=== PATIENT | female | born 1955 | race Caucasian/White ===

== ENCOUNTER → 2018-11-02 10:25 | Outpatient (CLI) | payer MEDICARE, OTHER, SELFPAY ==
[2018-11-02 10:53] LABS: Appearance Urine UA CLEAR; Bilirubin Urine UA NEGATIVE (NEGATIVE); Color Urine UA YELLOW; Glucose Urine UA NEGATIVE (Negative); Ketones Urine UA NEGATIVE (NEGATIVE); Leukocyte Esterase Urine UA NEGATIVE (NEGATIVE); Nitrite Urine UA NEGATIVE (Negative); Occult Blood Urine UA 3+ (Negative); Protein Urine UA NEGATIVE (Negative); Specific Gravity Urine UA 1.015 (1.000-1.035); Urobilinogen Urine UA 0.2 E.U./dL (0.2)
[2018-11-02 12:25] LABS: Add Manual Diff / Slide Review NO; Basophils Absolute Auto 0 /uL (0-100); Basophils Percent Auto 0.4 % (0-2); Eosinophils Absolute Auto 200 /uL (0-450); Eosinophils Percent Auto 2.2 % (2-4); Hemoglobin 14.2 g/dL (12.0-16.0); Lymphocytes Absolute Auto 3000 /uL (1100-4500); Lymphocytes Percent Auto 33.7 % (25-40); Mean Corpuscular HGB Conc 33.8 % (30-36); Mean Corpuscular Hemoglobin 29.7 PG (26-34); Mean Corpuscular Volume 87.9 fL (80-100); Monocytes Absolute Auto 600 /uL (0-900); Monocytes Percent Auto 6.9 % (3-14); Neutrophils Absolute Auto 5100 /uL (1500-7000); Neutrophils Percent Auto 56.8 % (50-75); Platelet Count 223 X10^3/uL (150-400); Red Blood Cell Count 4.78 X10^6/uL (4.0-5.2); Red Cell Distribution Width 14.4 % (11.6-14.8)
[2018-11-02 12:49] LABS: Alanine Aminotransferase 14 IU/L (9-52); Albumin 4.3 g/dL (3.5-5.0); Albumin Globulin Ratio 1.4 (1.0-2.8); Alkaline Phosphatase 90 U/L (38-126); Aspartate Aminotransferase 18 IU/L (14-36); BUN Creatinine Ratio 24.3 (6-22); Bilirubin Total 0.7 mg/dL (0.2-1.3); Blood Urea Nitrogen 17 mg/dL (7-17); Calcium 9.9 mg/dL (8.4-10.2); Carbon Dioxide 26 mmol/L (22-32); Chloride 104 mmol/L (98-107); Cholesterol 248 mg/dL (140-199); Estimated Glomerular Filt Rate > 60.0 mL/min (>60); Glucose 102 mg/dL (80-110); HDL Cholesterol 46 mg/dL (40-60); HEMOLYSIS < 15 (0-50); LDL Cholesterol Calculated 164 mg/dL (<100); Potassium 4.4 mmol/L (3.4-5.1); Sodium 141 mmol/L (137-145); Total Protein 7.3 g/dL (6.3-8.2); Triglycerides 188 mg/dL (35-150)
[2018-11-02 13:16] LABS: Thyroid Stimulating Hormone 2.15 uIU/mL (0.47-4.68)
== END ==
PROVIDERS: Visit Provider Family Medicine
DX: Z13.220 Encounter for screening for lipoid disorders (principal); Z13.29 Encounter for screening for other suspected endocrine disorder; Z51.81 Encounter for therapeutic drug level monitoring; I10 Essential (primary) hypertension
CPT/HCPCS: 36415; 80053; 80061; 81003; 84443; 85025

== ENCOUNTER → 2018-11-29 14:37 | Outpatient (CLI) | payer MEDICARE, OTHER, SELFPAY ==
[2018-11-29 14:46] LABS: Bacteria Urine None Seen
[2018-11-29 14:51] LABS: Appearance Urine UA SL CLOUDY; Bilirubin Urine UA NEGATIVE (NEGATIVE); Color Urine UA YELLOW; Glucose Urine UA NEGATIVE (Negative); Ketones Urine UA NEGATIVE (NEGATIVE); Leukocyte Esterase Urine UA NEGATIVE (NEGATIVE); Nitrite Urine UA NEGATIVE (Negative); Occult Blood Urine UA TRACE-LYSED (Negative); Protein Urine UA NEGATIVE (Negative); Specific Gravity Urine UA 1.025 (1.000-1.035); Urobilinogen Urine UA 0.2 E.U./dL (0.2)
[2018-11-29 14:53] LABS: pH Urine UA 5.5 (4.5-8.0)
[2018-11-29 14:58] LABS: Culture Indicated Urine Cult Not Indicated; RBC Urine 0-1/HPF (0-5/HPF); Squamous Epithelial Cell Urine 10-30 /HPF (0-5/HPF); WBC Urine 0-1/HPF (0-5/HPF)
== END ==
PROVIDERS: PCP Family Medicine; Visit Provider Family Medicine
DX: R31.9 Hematuria, unspecified (principal)
CPT/HCPCS: 81001

== ENCOUNTER → 2018-12-25 17:21 | Outpatient (CLI) | payer MEDICARE, OTHER, SELFPAY ==
--- NOTE | 2018-12-25 | DI.MG.S_ITS ---
BILATERAL DIGITAL SCREENING MAMMOGRAM 3D/2D WITH CAD: 12/25/2018 CLINICAL: Routine screening. Comparison is made to exams dated: 09/24/2012 mammogram, 11/06/2013 mammogram, and 01/04/2016 mammogram - [facility]. There are scattered fibroglandular elements in both breasts. Current study was also evaluated with a Computer Aided Detection (CAD) system. There is a mole marker on the right breast. There are mole markers on the left breast. No significant masses, calcifications, or other findings are seen in either breast. There has been no significant interval change. IMPRESSION: NEGATIVE There is no mammographic evidence of malignancy. A 1 year screening mammogram is recommended. This exam was interpreted at Station ID: [id number]. NOTE: For mammograms, a report in lay terms will be sent to the patient. Approximately 15% of breast malignancies will not be visualized mammographically. In the management of a palpable breast mass, a negative mammogram must not discourage biopsy of a clinically suspicious lesion. Electronically Signed By: Joaquin mclean/julio:12/26/2018 13:21:12 letter sent: Normal Exam ACR BI-RADS Category 1: Negative [id number]
== END ==
PROVIDERS: PCP Family Medicine; Visit Provider Family Medicine
DX: Z12.31 Encounter for screening mammogram for malignant neoplasm of breast (principal)
CPT/HCPCS: 77063; 77067

== ENCOUNTER → 2019-09-30 09:50 | Outpatient (CLI) | payer MEDICARE, OTHER, SELFPAY ==
--- NOTE | 2019-09-30 09:52 | DI.RAD.S_ITS ---
PROCEDURE: XR KUB INDICATIONS: kidney stone TECHNIQUE: One view of the abdomen acquired. COMPARISON: Outside Facility, RG, XR RETROGRADE PYELOGRAM, 08/25/2019, 13:43. FINDINGS: Surgical changes and devices: Right double-J ureteral stent. Bowel: Bowel gas pattern is normal. Soft tissues: There is a small calcification in the region of the distal right ureter measuring 6 mm which could represent a fragment of the previously seen obstructing calculus in the mid right ureter. Calcified fibroid uterus. No suspicious abdominal calcifications. Bones: No suspicious bony lesions. IMPRESSION: 1. Right double-J ureteral stent. 2. Probable fragment of the previously seen obstructing ureteral calculus at the distal right ureter. -Consider CT KUB for further evaluation. Dictated by: Ryne Spence M.D. on 09/30/2019 at 10:44 Approved by: Ryne Spence M.D. on 09/30/2019 at 10:48
== END ==
PROVIDERS: PCP Family Medicine; Referring Provider Specialist; Visit Provider Specialist
DX: N20.1 Calculus of ureter (principal); D25.9 Leiomyoma of uterus, unspecified; Z96.0 Presence of urogenital implants
CPT/HCPCS: 74018

== ENCOUNTER → 2019-10-01 16:41 | Outpatient (CLI) | payer MEDICARE, OTHER, SELFPAY ==
[2019-10-03 13:12] LABS: COVID19 Sendout Not Detected (Not Detect)
== END ==
PROVIDERS: PCP Family Medicine; Visit Provider Physician Assistant
DX: Z01.812 Encounter for preprocedural laboratory examination (principal)
CPT/HCPCS: 87635

== ENCOUNTER 2019-10-04 07:58 | Day surgery (SDC) | payer MEDICARE, OTHER, SELFPAY ==
[2019-10-02 10:55] VITALS: BMI 31.1
[2019-10-04] VITALS (11 sets, daily range): BP systolic 89–133; BP diastolic 63–85; PULSE 65–97; RESP 12–18; TEMP 36.1–36.7; O2SAT 94–98; BMI 31.1
--- NOTE | 2019-10-04 | DI.RAD.S_ITS ---
PROCEDURE: XR ABDOMEN 1V INDICATIONS: CYSTO W/ LASER AND STENT TECHNIQUE: One view of the abdomen acquired. COMPARISON: Outside Facility, RG, CT ABDOMEN/PELVIS WITHOUT CONTRAST, 08/24/2019, 10:30. Outside Facility, RG, XR RETROGRADE PYELOGRAM, 08/25/2019, 13:43. FINDINGS: Surgical changes and devices: None. Bowel: Bowel gas pattern is normal, partially visualized. Soft tissues: Single digital acquisition image from the operative procedure reportedly on the right with retrograde stent positioning, double pigtail presumably, with upper coil in the expected region of the right renal pelvis. Bones: No suspicious bony lesions. IMPRESSION: Single limited digital acquisition image shows expected positioning of a presumed double pigtail right ureteral stent with upper pigtail in expected position. Dictated by: Víctor Richardson M.D. on 10/04/2019 at 12:05 Approved by: Víctor Richardson M.D. on 10/04/2019 at 12:08
--- NOTE | 2019-10-04 09:07 | SUR.PREOP ---
Was asked to start an IV. Upon arrival at patient's bedside patient sitting up in the stretcher, rocking, pale, diaphoretic. C/O not feeling right. Cool wash cloth and ice pack given. BP 89/63, then 101/65. Spouse present. Patient reported feeling better. Call light within reach.
[2019-10-04] MEDS: LACTATED RINGERS 1,000 ML 42 ML IV ×2 (09:15→10:38)
--- NOTE | 2019-10-04 09:33 | PM.PREOP ---
Pre-operative Note Interval Note History & Physical reviewed/Exam performed by Physician: Yes Changes to H&P: No
[2019-10-04] MEDS: CEFAZOLIN 1 GM VIAL 2 GM IV (10:10)
--- NOTE | 2019-10-04 10:17 | SUR.OPER ---
Lithotomy on padded OR bed, head on pillow, arms secured on padded arm boards at <90 degrees abduction. Legs secured in padded yellow fins stirrups.
--- NOTE | 2019-10-04 10:42 | P.OP_ITS ---
Operative Date/Time/Diagnoses Date of procedure: 10/04/19 Time of procedure: 10:42 Pre-op diagnosis: Obstructing 6 x 8 mm right ureteral calculus Procedure & Clinicians Procedure: 1. Cystoscopy and right ureteroscopic laser lithotripsy. 2. Cystoscopy and right ureteral stent exchange (6 Dutch by 22-32 multi- length). Same procedure as scheduled: Yes Indications: 1. 6 x 8 mm obstructing right mid ureteral calculus Click Yes if Unassisted: Yes Anesthesia Type: General Operative Notes Findings: Urethra normal caliber. Bladder demonstrates trace trabeculation normal orifices bilaterally with a right ureteral stent emanating from the right orifice with mild surrounding erythema and bullous edema. The calculus was encountered in expected location. There was significant edema and erythema and mild mucosal excoriation in the region of the stone impaction. Intraoperative decision for stent replacement was made based on visual intraureteral findings. Closure Type: not applicable Specimen(s): none sent Applied: other (Six Dutch by 22-32 cm multi-length ureteral stent) Estimated Blood Loss (mL): 0 Blood products transfused: none Tourniquet time (min): 0 Procedure in detail: The patient was positioned supine and was administered general anesthesia. She was then repositioned semi lithotomy and the lower abdomen, genitalia, and perineum was prepped and draped in sterile fashion. The 22 Dutch panendoscope was then passed in the lower urinary tract with the findings as described above. A foreign body grasper was then used to engage the distal into the stent and bring it out to the perineum. A 0.35 guidewire was then advanced through the lumen of the existing stent and advanced proximally into the right upper collecting system under direct and fluoroscopic guidance. The existing stent was then backloaded off the wire and discarded. The wire was secured to the drape. The semi rigid ureteral scope was then prepared advanced and lower urinary tract into the into the right ureter under direct and fluoroscopic guidance. All ope rating room personnel and patient were then fitted with laser safety eyewear. A 272 micron laser fiber was selected. The fiber was advanced through the working channel of the ureteral scope and lithotripsy was then conducted with excellent subsequent stone fragmentation. Utilizing both hydrostatic and mechanical agitation the fragments and palm is were effectively irrigated clear of the ureteral lumen. The ureteral scope was then removed and the panendoscope was then backloaded onto the guidewire. A 6 Dutch by 22-32 cm multi-length stent was then selected. A RETRIEVAL LINE WAS LEFT ATTACHED. The bladder was then drained completely and all instrumentation was removed a final time. Retrieval line was trimmed to an appropriate length distal to the urethral meatus. The patient was then repositioned in supine, awakened[facility]. Complications: none Post-operative Condition: stable Disposition: PACU Plan for aftercare: Discharge home
[2019-10-04] MEDS: BELLADONNA/OPIUM SUPPOSITORIES 1 EACH PR (10:45)
[2019-10-04] MEDS: HYDROCODONE/ACET 5/325 TABLET 1 TAB PO (11:57)
== END 2019-10-04 12:50 | disposition home or self-care (01) ==
PROVIDERS: PCP Family Medicine; Referring Provider Specialist; Visit Provider Specialist
PROC: (CPT 52356; principal; 2019-10-04 09:15)
DX: N20.1 Calculus of ureter (principal); K21.9 Gastro-esophageal reflux disease without esophagitis
CPT/HCPCS: 52356; 74018; 76000; J0690; J1100; J2250; J2405; J2704; J2765; J3010

== ENCOUNTER 2019-10-20 19:27 | Inpatient (IN) | payer MEDICARE, OTHER, SELFPAY ==
[2019-10-20] VITALS (52 sets, daily range): BP systolic 117–160; BP diastolic 57–118; PULSE 75–107; RESP 11–42; TEMP 37.1; O2SAT 89–99
--- NOTE | 2019-10-20 19:34 | DI.CT.S_ITS ---
PROCEDURE: CT STROKE INDICATIONS: sudden dizzy, blurred vision, confusion 1 hour ago. TPA cand TECHNIQUE: Noncontrast 4.5 mm thick angled axial sections acquired from the foramen magnum to the vertex, with coronal reformats. For radiation dose reduction, the following was used: automated exposure control, adjustment of mA and/or kV according to patient size. COMPARISON: None. FINDINGS: Image quality: Excellent. CSF spaces: Basal cisterns are patent. No extra-axial fluid collections. Ventricles are normal in size and shape. Brain: No midline shift. No intracranial masses or hemorrhage. Dougherty-white matter interface is normal. Skull and face: Calvarium and visualized facial bones are intact, without suspicious lesions. Sinuses: Visualized sinuses and mastoids are clear. IMPRESSION: No intracranial hemorrhage or CT evidence of acute infarct. No acute intracranial process demonstrated otherwise. Findings were discussed with Dr. Armstrong at 8:07 p.m. PST on 10/20/2019. This study fulfills neurological imaging criteria for inclusion or exclusion of acute stroke therapies based on available published neurological imaging guidelines. Dictated by: Juan Lieberman M.D. on 10/20/2019 at 20:05 Approved by: Juan Lieberman M.D. on 10/20/2019 at 20:07
--- NOTE | 2019-10-20 20:01 | DI.CT.S_ITS ---
PROCEDURE: CT ANGIO HEAD AND NECK INDICATIONS: stroke TECHNIQUE: Pre-contrast 4.5 mm thick sections acquired from the foramen magnum to the vertex. After the administration of intravenous contrast, 1 mm thick sections acquired from the aortic arch through the [place] of [place]. Post-contrast 4.5 mm thick sections then re-acquired from the foramen magnum to the vertex. 3-dimensional racqirt-sutlujdgx-awajfsrbpg (MIP) and/or volume rendering reformats were acquired of the central intracranial vasculature and neck separately. COMPARISON: None. FINDINGS: Image quality: Excellent. BRAIN: HEAD CT ANGIOGRAPHY: Anterior circulation: In intracranial portions of the carotid arteries appear widely patent. Anterior and middle cerebral arteries demonstrate no focal occlusion or hemodynamically significant stenosis. Anterior cerebral artery is present. No evidence of anterior circulation intracranial aneurysm. Posterior circulation: The distal V4 segments are widely patent and both contribute to the basilar artery, right greater than left. Basilar artery is widely patent as are the posterior cerebral arteries. Right posterior communicating artery is not identified, hypoplastic versus aplastic. NECK CT ANGIOGRAPHY: Carotid system: Cervical carotid arteries demonstrate no flow-limiting stenosis or evidence of dissection. Posterior circulation: T cervical portions of the vertebral arteries demonstrate no flow-limiting stenosis or dissection IMPRESSION: No hemodynamically significant stenosis or occlusion of the major arterial circulation of the neck. No hemodynamically significant stenosis or branch occlusion of the intracranial arterial circulation. Any quantitative measurements of stenosis were performed using NASCET criteria. Dictated by: Juan Lieberman M.D. on 10/20/2019 at 20:10 Approved by: Juan Lieberman M.D. on 10/20/2019 at 20:14
[2019-10-20] MEDS: ONDANSETRON 4 MG/2 ML INJ (20:15)
[2019-10-20 20:19] LABS: Add Manual Diff / Slide Review NO; Basophils Absolute Auto 100 /uL (0-100); Eosinophils Absolute Auto 100 /uL (0-450); Eosinophils Percent Auto 1.1 % (2-4); Hematocrit 42.6 % (36-46); Hemoglobin 14.2 g/dL (12.0-16.0); Lymphocytes Absolute Auto 2400 /uL (1100-4500); Lymphocytes Percent Auto 30.2 % (25-40); Mean Corpuscular HGB Conc 33.4 % (30-36); Mean Corpuscular Hemoglobin 29.5 PG (26-34); Mean Corpuscular Volume 88.2 fL (80-100); Monocytes Absolute Auto 500 /uL (0-900); Monocytes Percent Auto 6.2 % (3-14); Neutrophils Absolute Auto 5000 /uL (1500-7000); Neutrophils Percent Auto 61.5 % (50-75); Platelet Count 226 X10^3/uL (150-400); Red Blood Cell Count 4.83 X10^6/uL (4.0-5.2); Red Cell Distribution Width 13.9 % (11.6-14.8); White Blood Cell Count 8.1 X10^3/uL (4.5-11.0)
--- NOTE | 2019-10-20 20:19 | PC.NURSE ---
Patient arrived via [facility]. patient reports not feeling well the whole day. states she did not eat anything all day due to feeling off. Reports her memory is not good. not oriented to place. after two reminders of telling patient where she is she now remembers she is at [facility].
[2019-10-20 20:20] LABS: Bilirubin Urine UA NEGATIVE (NEGATIVE); Color Urine UA YELLOW; Glucose Urine UA NEGATIVE (Negative); Ketones Urine UA NEGATIVE (NEGATIVE); Leukocyte Esterase Urine UA 3+ (NEGATIVE); Nitrite Urine UA NEGATIVE (Negative); Occult Blood Urine UA 3+ (Negative); Protein Urine UA TRACE (Negative); Specific Gravity Urine UA <=1.005 (1.000-1.035); Urobilinogen Urine UA 0.2 E.U./dL (0.2)
--- NOTE | 2019-10-20 20:21 | PC.NURSE ---
patient reports [facility] Patient needed to urinate with urgency and was able to hold urine intil placed on bedpan. Urine dipped by MADAN
[2019-10-20 20:30] LABS: Appearance Urine UA CLOUDY; pH Urine UA 6.5 (4.5-8.0)
[2019-10-20 20:30] LABS: Lactate (Lactic Acid) 2.2 mmol/L (0.7-2.1)
[2019-10-20 20:31] LABS: Alanine Aminotransferase 16 IU/L (<35); Albumin 4.1 g/dL (3.5-5.0); Albumin Globulin Ratio 1.3 (1.0-2.8); Alkaline Phosphatase 65 U/L (38-126); Aspartate Aminotransferase 24 IU/L (14-36); BUN Creatinine Ratio 19.2 (6-22); Bilirubin Total 0.6 mg/dL (0.2-1.3); Blood Urea Nitrogen 14 mg/dL (7-17); Calcium 9.5 mg/dL (8.4-10.2); Carbon Dioxide 25 mmol/L (22-32); Chloride 103 mmol/L (98-107); Creatine Kinase 32 U/L (30-135); Estimated Glomerular Filt Rate > 60.0 mL/min (>60); Globulin 3.1 g/dL (1.7-4.1); Glucose 137 mg/dL (80-110); HEMOLYSIS 19 (0-50); Magnesium 1.8 mg/dL (1.6-2.3); Potassium 3.8 mmol/L (3.4-5.1); Sodium 136 mmol/L (137-145); Total Protein 7.2 g/dL (6.3-8.2)
[2019-10-20 20:32] LABS: C-Reactive Protein Quant < 0.5 mg/dL (<1.0)
[2019-10-20 20:38] LABS: Bacteria Urine Many (>30); Calcium Oxalate Crystals Urine Occasional; Culture Indicated Urine Specimen Cultured; RBC Urine 1-5/HPF (0-5/HPF); Squamous Epithelial Cell Urine 1-5 /HPF (0-5/HPF); WBC Urine 30-100/HPF (0-5/HPF)
[2019-10-20 20:41] LABS: NT-proBNP (BNP-Adult 18+) 100 pg/mL (<125); Troponin I < 0.012 ng/mL (0.01-0.034)
[2019-10-20] MEDS: SODIUM CHLORIDE 0.9% 1,000 ML 1000 ML IV (20:41)
--- NOTE | 2019-10-20 20:56 | ED.AMS ---
HPI - Altered Mental Status General Chief Complaint: Altered Mental Status Stated Complaint: dizzy Time Seen by Provider: 10/20/19 19:28 Source: EMS Mode of arrival: EMS Limitations: no limitations History of Present Illness HPI narrative: 64F never smoker with history of kidney stone and recent ureteral stent placement presents with a chief complaint some dizziness, confusion and feeling generally unwell over the course of the day. She denies any focal neurologic complaints such as facial weakness or extremity numbness, weakness or tingling. She denies any recent injury. She has had subjective fever and chills. She states her urine is passing without difficulty but does smell a bit. She has generalized abdominal cramping but no specific source of pain. Initially patient's complaint of vision difficulty was reported as having started 1 hour prior to her arrival, hence her activation as a code stroke initially. However after further questioning, when her arrived it was determined this was a much more global presentation and had been going on over the course of the day. MD complaint: altered mental status and confusion Onset (ago): day(s) Timing confirmed by: family member Severity: mild Consistency of symptoms: constant Context: recent fever Associated symptoms: weakness and foul smelling urine Related Data Previous Rx's Medication Instructions Recorded cyclobenzaprine 10 mg tablet 10 mg PO BEDTIME PRN #5 tab 09/03/18 lorazepam 1 mg tablet 1 mg PO QD-BID PRN #60 tab 09/03/18 meclizine 25 mg tablet 25 mg PO BID PRN #100 tab 09/03/18 omeprazole 20 mg capsule,delayed 20 mg PO DAILY #90 cap 09/03/18 release tamsulosin 0.4 mg capsule 0.4 mg PO BEDTIME #30 cap 09/25/19 tramadol 50 mg tablet 50 mg PO Q6H PRN #30 tab 09/25/19 tramadol 50 mg PO Q6H PRN #20 tab 10/04/19 Allergies Allergy/AdvReac Type Severity Reaction Status Date / Time hydromorphone [From Dilaudid] Allergy Intermediate Unsure Verified 10/20/19 19:40 clindamycin Allergy Verified 10/20/19 19:40 verapamil Allergy Verified 10/20/19 19:40 meperidine [From Demerol] AdvReac Intermediate vomiting Verified 10/20/19 19:40 Review of Systems Constitutional Constitutional: Reports body ache(s), Reports chills, Reports fatigue, Reports fever(s), Denies frequent falls, Denies lethargy, Reports poor appetite and Reports weakness Eyes Eyes: Denies change in vision, Denies eye discharge, Denies irritation and Denies loss of vision ENT Ears, Nose, Mouth, and Throat: Denies change in voice, Denies dizziness, Denies neck pain, Denies sore throat and Denies throat swelling Cardiovascular Cardiovascular: Denies chest pain, Denies irregular heart rhythm, Denies lightheadedness, Denies palpitations, Denies dyspnea, Denies dyspnea on exertion and Denies orthopnea Respiratory Respiratory: Denies cough, Denies dyspnea, Denies dyspnea on exertion and Denies wheezing Gastrointestinal Gastrointestinal: Denies abdominal pain, Denies change in bowel habits, Denies diarrhea, Denies nausea and Denies vomiting Genitourinary Genitourinary: Reports system reviewed and no additional complaints, except as documented Musculoskeletal Musculoskeletal: Denies neck pain and Denies numbness Integumentary/Breasts Skin/Breast: Denies pruritus, Denies erythema, Denies rash and Denies wounds Neurologic Neurologic: Denies behavioral changes, Reports confusion, Denies dizziness, Denies frequent falls, Denies loss of vision, Denies numbness and Reports weakness Psychiatric Psychiatric: Denies anxiety, Denies behavioral changes, Reports confusion, Denies depression, Denies homicidal ideation and Denies suicidal ideation Endocrine Endocrine: Reports fatigue, Denies flushing and Denies palpitations Hematologic/Lymphatic Hematologic/Lymphatic: Denies easy bruising Allergic/Immunologic Allergic/Immunologic: Denies urticaria, Denies throat swelling and Denies wheezing Patient History Medical History Chicken pox (Resolved) GERD (gastroesophageal reflux disease) (Acute) Hydronephrosis of right kidney (Acute) Hyperglycemia (Acute) Irritable bowel syndrome (Chronic ~2016) LVH (left ventricular hypertrophy) (Acute) Migraines (Chronic) Moderate anxiety (Acute) Recurrent sinusitis (Chronic ~1999) Right ureteral stone (Acute) Seasonal allergies (Chronic ~2010) Stroke (Inactive ~2009) Tinnitus (Chronic ~1994) Tonsillectomy planned (Acute) Urolithiasis (Acute) Vertigo (Chronic ~1994) Surgical History Anesthesia (Resolved) History of throat surgery (Resolved ~2011) Hx of cystoscopy (Acute 08/25/19) Family History Father Cancer Diabetes mellitus Mother Dementia Grandmother History of blood clots Grandmother Cancer Social History household members: spouse Smoking Status: Never smoker alcohol intake: current Smoking Status: Never smoker alcohol intake frequency: holidays/special occasions only Substance Use Type: does not use Exam Narrative Exam Narrative: GENERAL: [64] year old patient appears stated age. Well-nourished, well-developed patient, in moderate distress, clearly not feeling well with some confusion. HEAD: Atraumatic. Normocephalic. EYES: Pupils equal round and reactive. Extraocular motions intact. No scleral icterus. No injection or drainage. ENT: Nose without bleeding, purulent drainage. Throat without erythema, tonsillar hypertrophy or exudate. Airway patent. NECK: Trachea midline. Non tender CARDIOVASCULAR: Regular rate and rhythm without murmurs, gallops, or rubs. RESPIRATORY: Clear to auscultation. Breath sounds equal bilaterally. No wheezes, rales, or rhonchi. GASTROINTESTINAL: Abdomen soft, non-tender, nondistended. EXTREMITIES: No edema or joint tenderness. BACK: Nontender without deformity or crepitance. No flank tenderness. NEURO: AOx3. SKIN: No rash or erythema of visible areas Initial Vital Signs Initial Vital Signs: Vital Signs Temperature 98.8 F 10/20/19 19:32 Pulse Rate 96 H 10/20/19 19:32 Respiratory Rate 20 10/20/19 19:32 Blood Pressure 160/118 H 10/20/19 19:32 Pulse Oximetry 99 10/20/19 19:32 Scores GCS Maria [place] Carmen coma scale eye opening: Spontaneous Maria [place] Carmen coma scale verbal response: Confused Aurora coma scale motor response: Obey commands Maria Del Carmen coma scale total score: 14 Course Course Course Narrative: Her urologist Dr. Bardales, is not on-call this weekend so a call is placed to Dr. Houston at the [facility]. We discussed this patient's presentation, recent history and imaging. There is no evidence of ongoing stone or obstruction and patient's presentation is most consistent with pyelonephritis and metabolic encephalopathy. He states there is no indication for transfer or need for emergent removal of the stent. His recommendation is to admit and treat for pyelonephritis and consultation with the patient's urologist tomorrow Orders Ordered: Cyclobenzaprine HCl (Flexeril) 10 mg PO BEDTIME PRN PRN Reason: muscle spasm Sodium Chloride (Normal Saline 0.9%) 1,000 mls @ 100 mls/hr IV CONT GIOVANNY Last Admin: 10/21/19 01:23 Dose: 100 mls/hr Documented by: GREYSON Ceftriaxone Sodium/Dextrose (Rocephin) 1 gm in 50 mls @ 100 mls/hr IV Q24H GIOVANNY Ketorolac Tromethamine (Toradol) 15 mg IV Q8H PRN PRN Reason: Pain, Moderate (4-6) Stop: 10/26/19 00:30 Lorazepam (Ativan) 1 mg PO BID PRN PRN Reason: Anxiety Meclizine HCl (Antivert) 25 mg PO BID PRN PRN Reason: dizziness Naloxone HCl (Narcan) 0.2 mg IV Q2MIN PRN PRN Reason: Opiate Reversal Tamsulosin HCl (Flomax) 0.4 mg PO BEDTIME GIOVANNY Tramadol HCl (Ultram) 50 mg PO Q6H PRN PRN Reason: pain Discontinued Medications Acetaminophen (Tylenol) 650 mg PO NOW ONE Stop: 10/21/19 00:10 Last Admin: 10/21/19 00:13 Dose: 650 mg Documented by: LOLITA Sodium Chloride (Normal Saline 0.9%) 1,000 mls @ 1,000 mls/hr IV BOLUS ONE Stop: 10/20/19 20:33 Last Infusion: 10/20/19 22:34 Dose: 0 mls/hr Documented by: Admin: 10/20/19 20:41 Dose: 1,000 mls/hr Documented by: LOLITA Ceftriaxone Sodium/Dextrose (Rocephin) 1 gm in 50 mls @ 100 mls/hr IV NOW ONE Stop: 10/20/19 21:21 Last Infusion: 10/20/19 21:48 Dose: 0 mls/hr Documented by: Admin: 10/20/19 21:15 Dose: 100 mls/hr Documented by: LOLITA Ceftriaxone Sodium/Dextrose (Rocephin) 1 gm in 50 mls @ 100 mls/hr IV Q24H GIOVANNY Vital Signs Vital signs: Vital Signs - 8 hr 10/20/19 22:20 10/20/19 22:25 10/20/19 22:30 Pulse Rate 84 79 85 Respiratory Rate 17 Blood Pressure Pulse Oximetry 98 97 96 10/20/19 22:35 10/20/19 22:40 10/20/19 22:45 Pulse Rate 105 H 89 84 Respiratory Rate 30 H 19 15 Blood Pressure Pulse Oximetry 95 96 96 10/20/19 22:50 10/20/19 22:56 10/20/19 23:00 Pulse Rate 89 89 86 Respiratory Rate 15 13 17 Blood Pressure Pulse Oximetry 96 96 92 10/20/19 23:05 10/20/19 23:07 10/20/19 23:10 Pulse Rate 87 87 83 Respiratory Rate 22 24 Blood Pressure 117/57 L Pulse Oximetry 96 96 97 10/20/19 23:15 10/20/19 23:20 10/20/19 23:25 Pulse Rate 75 75 79 Respiratory Rate 12 16 Blood Pressure 125/61 Pulse Oximetry 96 97 96 10/20/19 23:30 10/20/19 23:35 10/20/19 23:40 Pulse Rate 81 79 87 Respiratory Rate 21 12 19 Blood Pressure 126/60 Pulse Oximetry 96 95 98 10/20/19 23:45 10/20/19 23:50 Pulse Rate 80 79 Respiratory Rate 14 17 Blood Pressure 130/63 Pulse Oximetry 95 95 MDM - Altered Mental Status Lab Data Result diagrams: 10/20/19 20:10 10/20/19 20:10 Labs: Lab Results 10/20/19 10/20/19 10/20/19 Range/Units 20:10 20:10 20:10 WBC 8.1 (4.5-11.0) X10^3/uL RBC 4.83 (4.0-5.2) X10^6/uL Hgb 14.2 (12.0-16.0) g/dL Hct 42.6 (36-46) % MCV 88.2 (80-100) fL MCH 29.5 (26-34) PG MCHC 33.4 (30-36) % RDW 13.9 (11.6-14.8) % Plt Count 226 (150-400) X10^3/uL Neut % (Auto) 61.5 (50-75) % Lymph % (Auto) 30.2 (25-40) % Summit % (Auto) 6.2 (3-14) % Eos % (Auto) 1.1 L (2-4) % Baso % (Auto) 1.0 (0-2) % Neut # (Auto) 5000 (7699-4490) /uL Lymph # (Auto) 2400 (4031-2957) /uL Summit # (Auto) 500 (0-900) /uL Eos # (Auto) 100 (0-450) /uL Baso # (Auto) 100 (0-100) /uL Sodium 136 L (137-145) mmol/L Potassium 3.8 (3.4-5.1) mmol/L Chloride 103 (98-107) mmol/L Carbon Dioxide 25 (22-32) mmol/L BUN 14 (7-17) mg/dL Creatinine 0.73 (0.52-1.04) mg/dL Estimated GFR > 60.0 (>60) mL/min BUN/Creatinine Ratio 19.2 (6-22) Glucose 137 H (80-110) mg/dL Lactate 2.2 H (0.7-2.1) mmol/L Calcium 9.5 (8.4-10.2) mg/dL Magnesium 1.8 (1.6-2.3) mg/dL Total Bilirubin 0.6 (0.2-1.3) mg/dL AST 24 (14-36) IU/L ALT 16 (<35) IU/L Alkaline Phosphatase 65 (38-126) U/L Total Creatine Kinase 32 (30-135) U/L CK-MB (CK-2) TNP CK-MB (CK-2) Rel Index TNP Troponin I < 0.012 (0.01-0.034) ng/mL C-Reactive Protein < 0.5 (<1.0) mg/dL NT-Pro-B Natriuret Pep 100 (<125) pg/mL Total Protein 7.2 (6.3-8.2) g/dL Albumin 4.1 (3.5-5.0) g/dL Globulin 3.1 (1.7-4.1) g/dL Albumin/Globulin Ratio 1.3 (1.0-2.8) Procalcitonin (<0.5) ng/mL Urine Color Urine Appearance Urine pH (4.5-8.0) Ur Specific [place] (1.000-1.035) Urine Protein (Negative) Urine Glucose (UA) (Negative) g/dL Urine Ketones (NEGATIVE) Urine Occult Blood (Negative) Urine Nitrate (Negative) Urine Bilirubin (NEGATIVE) Urine Urobilinogen (0.2) E.U./dL Ur Leukocyte Esterase (NEGATIVE) Urine RBC (0-5/HPF) Urine WBC (0-5/HPF) Ur Squamous Epith Cells (0-5/HPF) Calcium Oxalate Crystal Urine Bacteria (None) Ur Culture Indicated? COVID-19 PCR (Negative) 10/20/19 10/20/19 10/20/19 Range/Units 20:18 20:48 22:30 WBC (4.5-11.0) X10^3/uL RBC (4.0-5.2) X10^6/uL Hgb (12.0-16.0) g/dL Hct (36-46) % MCV (80-100) fL MCH (26-34) PG MCHC (30-36) % RDW (11.6-14.8) % Plt Count (150-400) X10^3/uL Neut % (Auto) (50-75) % Lymph % (Auto) (25-40) % Summit % (Auto) (3-14) % Eos % (Auto) (2-4) % Baso % (Auto) (0-2) % Neut # (Auto) (9563-9528) /uL Lymph # (Auto) (6856-6265) /uL Summit # (Auto) (0-900) /uL Eos # (Auto) (0-450) /uL Baso # (Auto) (0-100) /uL Sodium (137-145) mmol/L Potassium (3.4-5.1) mmol/L Chloride (98-107) mmol/L Carbon Dioxide (22-32) mmol/L BUN (7-17) mg/dL Creatinine (0.52-1.04) mg/dL Estimated GFR (>60) mL/min BUN/Creatinine Ratio (6-22) Glucose (80-110) mg/dL Lactate 1.3 (0.7-2.1) mmol/L Calcium (8.4-10.2) mg/dL Magnesium (1.6-2.3) mg/dL Total Bilirubin (0.2-1.3) mg/dL AST (14-36) IU/L ALT (<35) IU/L Alkaline Phosphatase (38-126) U/L Total Creatine Kinase (30-135) U/L CK-MB (CK-2) CK-MB (CK-2) Rel Index Troponin I (0.01-0.034) ng/mL C-Reactive Protein (<1.0) mg/dL NT-Pro-B Natriuret Pep (<125) pg/mL Total Protein (6.3-8.2) g/dL Albumin (3.5-5.0) g/dL Globulin (1.7-4.1) g/dL Albumin/Globulin Ratio (1.0-2.8) Procalcitonin < 0.05 (<0.5) ng/mL Urine Color Yellow Urine Appearance Cloudy Urine pH 6.5 (4.5-8.0) Ur Specific [place] <=1.005 (1.000-1.035) Urine Protein Trace H (Negative) Urine Glucose (UA) Negative (Negative) g/dL Urine Ketones Negative (NEGATIVE) Urine Occult Blood 3+ H (Negative) Urine Nitrate Negative (Negative) Urine Bilirubin Negative (NEGATIVE) Urine Urobilinogen 0.2 (0.2) E.U./dL Ur Leukocyte Esterase 3+ H (NEGATIVE) Urine RBC 1-5/hpf (0-5/HPF) Urine WBC 30-100/hpf H (0-5/HPF) Ur Squamous Epith Cells 1-5 /hpf D (0-5/HPF) Calcium Oxalate Crystal Occasional H Urine Bacteria Many (>30) H (None) Ur Culture Indicated? Specimen cultured COVID-19 PCR (Negative) 10/20/19 Range/Units 23:37 WBC (4.5-11.0) X10^3/uL RBC (4.0-5.2) X10^6/uL Hgb (12.0-16.0) g/dL Hct (36-46) % MCV (80-100) fL MCH (26-34) PG MCHC (30-36) % RDW (11.6-14.8) % Plt Count (150-400) X10^3/uL Neut % (Auto) (50-75) % Lymph % (Auto) (25-40) % Summit % (Auto) (3-14) % Eos % (Auto) (2-4) % Baso % (Auto) (0-2) % Neut # (Auto) (4592-6377) /uL Lymph # (Auto) (5559-7987) /uL Summit # (Auto) (0-900) /uL Eos # (Auto) (0-450) /uL Baso # (Auto) (0-100) /uL Sodium (137-145) mmol/L Potassium (3.4-5.1) mmol/L Chloride (98-107) mmol/L Carbon Dioxide (22-32) mmol/L BUN (7-17) mg/dL Creatinine (0.52-1.04) mg/dL Estimated GFR (>60) mL/min BUN/Creatinine Ratio (6-22) Glucose (80-110) mg/dL Lactate (0.7-2.1) mmol/L Calcium (8.4-10.2) mg/dL Magnesium (1.6-2.3) mg/dL Total Bilirubin (0.2-1.3) mg/dL AST (14-36) IU/L ALT (<35) IU/L Alkaline Phosphatase (38-126) U/L Total Creatine Kinase (30-135) U/L CK-MB (CK-2) CK-MB (CK-2) Rel Index Troponin I (0.01-0.034) ng/mL C-Reactive Protein (<1.0) mg/dL NT-Pro-B Natriuret Pep (<125) pg/mL Total Protein (6.3-8.2) g/dL Albumin (3.5-5.0) g/dL Globulin (1.7-4.1) g/dL Albumin/Globulin Ratio (1.0-2.8) Procalcitonin (<0.5) ng/mL Urine Color Urine Appearance Urine pH (4.5-8.0) Ur Specific [place] (1.000-1.035) Urine Protein (Negative) Urine Glucose (UA) (Negative) g/dL Urine Ketones (NEGATIVE) Urine Occult Blood (Negative) Urine Nitrate (Negative) Urine Bilirubin (NEGATIVE) Urine Urobilinogen (0.2) E.U./dL Ur Leukocyte Esterase (NEGATIVE) Urine RBC (0-5/HPF) Urine WBC (0-5/HPF) Ur Squamous Epith Cells (0-5/HPF) Calcium Oxalate Crystal Urine Bacteria (None) Ur Culture Indicated? COVID-19 PCR Negative (Negative) Urine Dip Bedside Urine Glucose Negative Bedside Urine Bilirubin - Negative Bedside Urine Ketone - Negative Urine Specific [place]ke 1.005 Bedside Urine Occult Blood +++ Bedside Urine pH 6.0 Bedside Urine Protein + 30 Bedside Urine Urobilinogen - Negative Bedside Urine Nitrite - Negative Bedside Urine Leukocytes +++ [address] scan - head: Radiologist's Impression: Chart Viewer Diagnostics DATE TYPE STATUS REF RANGE/AUTHOR Hx 10/20/19 21:13 Juan Lieberman 10/20/19 20:01 Juan Lieberman 10/20/19 19:34 Juan Lieberman 10/04/19 00:00 Víctor Richardson 09/30/19 09:52 Ryne Spence 08/24/19 11:53 12/25/18 00:00 Joaquin Grant [employer] Portillo 64, 1955 ADM IN, AC 207 -1 165.1cm 87.543kg BMI: 32.1kg/m? Search Chart No Data to Display Unsure vomiting ONSET Today 00:25 Art Crowesury Portillo 64 F 1955 [place] [address] CT Scan Report Signed Patient: Joelen Crowe LMR#: [id number] : 1955cct:[id number] Age/Sex: 64 / FDate of Service: 10/20/19 Loc: ED Accession Number: [id number] Procedure: CT Stroke Ordering Provider: Chinedu Armstrong D.O. PROCEDURE: CT STROKE INDICATIONS: sudden dizzy, blurred vision, confusion 1 hour ago. TPA cand TECHNIQUE: Noncontrast 4.5 mm thick angled axial sections acquired from the foramen magnum to the vertex, with coronal reformats. For radiation dose reduction, the following was used: automated exposure control, adjustment of mA and/or kV according to patient size. COMPARISON: None. FINDINGS: Image quality: Excellent. CSF spaces: Basal cisterns are patent. No extra-axial fluid collections. Ventricles are normal in size and shape. Brain: No midline shift. No intracranial masses or hemorrhage. Dougherty-white matter interface is normal. Skull and face: Calvarium and visualized facial bones are intact, without suspicious lesions. Sinuses: Visualized sinuses and mastoids are clear. IMPRESSION: No intracranial hemorrhage or CT evidence of acute infarct. No acute intracranial process demonstrated otherwise. Findings were discussed with Dr. Armstrong at 8:07 p.m. PST on 10/20/2019. This study fulfills neurological imaging criteria for inclusion or exclusion of acute stroke therapies based on available published neurological imaging guidelines. Dictated by: Juan Lieberman M.D. on 10/20/2019 at 20:05 Approved by: Juan Lieberman M.D. on 10/20/2019 at 20:07 CTA Head Neck: Radiologist's Impression: [place] [address] CT Scan Report Signed Patient: Joleen Crowe LMR#: [id number] : 3Acct:[id number] Age/Sex: 64 / FDate of Service: 10/20/19 Loc: ED Accession Number: [id number] Procedure: CT angio head and neck Ordering Provider: Chinedu Armstrong D.O. PROCEDURE: CT ANGIO HEAD AND NECK INDICATIONS: stroke TECHNIQUE: Pre-contrast 4.5 mm thick sections acquired from the foramen magnum to the vertex. After the administration of intravenous contrast, 1 mm thick sections acquired from the aortic arch through the [place] of [place]. Post-contrast 4.5 mm thick sections then re-acquired from the foramen magnum to the vertex. 3-dimensional gapxgae-tvsaptooe-xayuxzfjfh (MIP) and/or volume rendering reformats were acquired of the central intracranial vasculature and neck separately. COMPARISON: None. FINDINGS: Image quality: Excellent. BRAIN: HEAD CT ANGIOGRAPHY: Anterior circulation: In intracranial portions of the carotid arteries appear widely patent. Anterior and middle cerebral arteries demonstrate no focal occlusion or hemodynamically significant stenosis. Anterior cerebral artery is present. No evidence of anterior circulation intracranial aneurysm. Posterior circulation: The distal V4 segments are widely patent and both contribute to the basilar artery, right greater than left. Basilar artery is widely patent as are the posterior cerebral arteries. Right posterior communicating artery is not identified, hypoplastic versus aplastic. NECK CT ANGIOGRAPHY: Carotid system: Cervical carotid arteries demonstrate no flow-limiting stenosis or evidence of dissection. Posterior circulation: T cervical portions of the vertebral arteries demonstrate no flow-limiting stenosis or dissection IMPRESSION: No hemodynamically significant stenosis or occlusion of the major arterial circulation of the neck. No hemodynamically significant stenosis or branch occlusion of the intracranial arterial circulation. Any quantitative measurements of stenosis were performed using NASCET criteria. Dictated by: Juan Lieberman M.D. on 10/20/2019 at 20:10 Approved by: Juan Lieberman M.D. on 10/20/2019 at 20:14 CT scan - abdomen/pelvis: Radiologist's Impression: Chart Viewer Diagnostics DATE TYPE STATUS REF RANGE/AUTHOR Hx 10/20/19 21:13 Juan Lieberman 10/20/19 20:01 Juan Lieberman 10/20/19 19:34 Juan Lieberman 10/04/19 00:00 Víctor Richardson 09/30/19 09:52 Ryne Spence 08/24/19 11:53 12/25/18 00:00 Joaquin Grant [employer] [place]illo 64, 1955 ADM IN, AC 207 -1 165.1cm 87.543kg BMI: 32.1kg/m? Search Chart No Data to Display Unsure vomiting ONSET Today 00:25 Joleen Crowe Bandar 64 F 1955 [place] [address] CT Scan Report Signed Patient: Joleen Crowe LMR#: [id number] : 1955cct:[id number] Age/Sex: 64 / FDate of Service: 10/20/19 Loc: ED Accession Number: [id number] Procedure: CT kidney ureter bladder (KUB) Ordering Provider: Chinedu Armstrong D.O. PROCEDURE: CT KIDNEY URETER BLADDER (KUB) INDICATIONS: Urosepsis, confusion, recent large stone and ureteral stent TECHNIQUE: Noncontrast 5 mm thick sections acquired from the diaphragms to the symphysis. 5 mm thick coronal and sagittal reformats were then performed. For radiation dose reduction, the following was used: automated exposure control, adjustment of mA and/or kV according to patient size. COMPARISON: Outside Facility, RG, XR RETROGRADE PYELOGRAM, 08/25/2019, 13:43. [facility], CR, XR KUB, 09/30/2019, 9:43. FINDINGS: Image quality: Excellent. Lung bases: Lung bases are clear. Heart size is normal. Urinary system: Excreted contrast material from the patient's recent CT head neck angiogram is present in both collecting systems. There is a right double-J ureteral stent in appropriate position. Mildly dilated right renal pelvis similar to comparison study. The ureter is decompressed with periureteric fat stranding. Left renal and ureteral collecting system is decompressed. Urinary bladder is within normal limits. Other solid organs: Liver is normal in size. Gallbladder appears2 normal. Pancreas is normal in contours. Spleen is normal in size. No adrenal nodules. Peritoneum and bowel: Unenhanced bowel loops demonstrate normal wall thickness and caliber. No free fluid or air. Nodes and vessels: No retroperitoneal or mesenteric adenopathy by size criteria. Aorta and inferior vena cava are normal in caliber. Abdominal wall: No ventral hernias. Pelvis: No free pelvic fluid. No inguinal hernias or adenopathy. Bones: No suspicious bony lesions. No vertebral body compression fractures. IMPRESSION: Right double-J ureteral stent. Mild dilatation of the right renal collecting system and right renal pelvis with adjacent fat stranding extending along the proximal 3rd of the right ureter. Findings may represent upper urinary tract infection. Dictated by: Juan Lieberman M.D. on 10/20/2019 at 21:44 Approved by: Juan Lieberman M.D. on 10/20/2019 at 21:54 Discharge Plan Departure Patient Disposition: Admitted As Inpatient Clinical Impression: Acute pyelonephritis, Acute metabolic encephalopathy Discharge Date/Time: 10/21/19 00:19 Admit Date/Time: 10/20/19 23:54 Admit Provider: Destiny Rosas
--- NOTE | 2019-10-20 21:11 | PC.NURSE ---
kaiers x 2 drawn by sowmya mcdonald
--- NOTE | 2019-10-20 21:13 | DI.CT.S_ITS ---
PROCEDURE: CT KIDNEY URETER BLADDER (KUB) INDICATIONS: Urosepsis, confusion, recent large stone and ureteral stent TECHNIQUE: Noncontrast 5 mm thick sections acquired from the diaphragms to the symphysis. 5 mm thick coronal and sagittal reformats were then performed. For radiation dose reduction, the following was used: automated exposure control, adjustment of mA and/or kV according to patient size. COMPARISON: Outside Facility, RG, XR RETROGRADE PYELOGRAM, 08/25/2019, 13:43. [facility], CR, XR KUB, 09/30/2019, 9:43. FINDINGS: Image quality: Excellent. Lung bases: Lung bases are clear. Heart size is normal. Urinary system: Excreted contrast material from the patient's recent CT head neck angiogram is present in both collecting systems. There is a right double-J ureteral stent in appropriate position. Mildly dilated right renal pelvis similar to comparison study. The ureter is decompressed with periureteric fat stranding. Left renal and ureteral collecting system is decompressed. Urinary bladder is within normal limits. Other solid organs: Liver is normal in size. Gallbladder appears2 normal. Pancreas is normal in contours. Spleen is normal in size. No adrenal nodules. Peritoneum and bowel: Unenhanced bowel loops demonstrate normal wall thickness and caliber. No free fluid or air. Nodes and vessels: No retroperitoneal or mesenteric adenopathy by size criteria. Aorta and inferior vena cava are normal in caliber. Abdominal wall: No ventral hernias. Pelvis: No free pelvic fluid. No inguinal hernias or adenopathy. Bones: No suspicious bony lesions. No vertebral body compression fractures. IMPRESSION: Right double-J ureteral stent. Mild dilatation of the right renal collecting system and right renal pelvis with adjacent fat stranding extending along the proximal 3rd of the right ureter. Findings may represent upper urinary tract infection. Dictated by: Juan Lieberman M.D. on 10/20/2019 at 21:44 Approved by: Juan Lieberman M.D. on 10/20/2019 at 21:54
[2019-10-20] MEDS: CEFTRIAXONE 1 GM/50 ML FROZ.PIGGY IV (21:15)
--- NOTE | 2019-10-20 21:50 | PC.NURSE ---
pateint reports still not feeling well. she now has righsided rigors that diminish when doing breathing exercises with patient. Provider aware and at bedside.
[2019-10-20 22:16] LABS: Reflexed Lactate in 2 Hours Y
[2019-10-20 22:53] LABS: Lactate 2HR (Lactic Acid Rflx) 1.3 mmol/L (0.7-2.1)
[2019-10-21] VITALS (9 sets, daily range): BP systolic 122–159; BP diastolic 69–90; PULSE 70–85; RESP 15–38; TEMP 36.4–37.1; O2SAT 95–98; BMI 32.1
[2019-10-21] MEDS: ACETAMINOPHEN 325 MG TABLET 650 MG PO ×2 (00:13→20:20)
[2019-10-21 01:02] LABS: Procalcitonin < 0.05 ng/mL (<0.5)
[2019-10-21 01:05] LABS: COVID19 -Nasal RAPID Negative (Negative)
[2019-10-21] MEDS: SODIUM CHLORIDE 0.9% 1,000 ML 100 ML IV (01:23)
--- NOTE | 2019-10-21 01:28 | PM.HP.1 ---
History of Present Illness History of Present Illness Date Patient Seen: 10/21/19 Time Patient Seen: 00:01 Chief complaint: dizzy Narrative: Joleen Crowe is a pleasant 64 y.o. female with prior history of a CVA 10 years ago, a recent history of lithotrypsy and urethral stent placement on October 03 for kidney stones, presented to the ED with confusion, short-term memory loss, word-finding problems and went through a complete workup in the emergency department and was ruled out for a CVA. Her urine studies indicated a high presence of bacteria and she was determined to have have a complicated UTI. They initiated her on Ceftriaxone and she has shown per her significant improvement with hydration and antibiotic treatment since arrival in the ED. He stated she was confused, was not tracking their conversation, and was trembling. She has had continued pain after the placement of the stent and states she feels like it is moving around inside of her. The patient also has complex migraines associated with a vestibular disorder and now complains of a severe headache. She prefers not to take narcotics as she states she is sensitive to them and is concerned about getting addicted to them. 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 She has an appointment w/Dr. Bardales to remove the urethral stent on Monday of this week. CT of the brain and CTA of the head and neck did not identify any acute intercranial process or blockage. CT of the abdomen and pelvis indicated a Right double-J ureteral stent. Mild dilatation of the right renal collecting system and right renal pelvis with adjacent fat stranding extending along the proximal 3rd of the right ureter. Findings may represent upper urinary tract infection. UA indicated many bacteria appropriate for culture. Temperature 98.0?, blood pressure 159/70, heart rate 76, respiratory rate 18, oxygen saturation 97% on room air, she weighs 87.5 kg with a BMI of 32.1. WBC was normal at 8.1, RBC 4.83, hemoglobin 14.2, hematocrit 42.6, platelet count 226, sodium 136, potassium 3.8, chloride 103, CO2 25, creatinine 0.73, BUN 14, GFR greater than 60, glucose 137, lactate was initially elevated at 2.2 and the 2nd reading was 1.3, calcium 9.5, magnesium 1.8, liver enzymes within normal limits, cardiac markers were also within normal limits, procalcitonin was normal at 0.05. Patient History Medical History Chicken pox (Resolved) GERD (gastroesophageal reflux disease) (Acute) Hydronephrosis of right kidney (Acute) Hyperglycemia (Acute) Irritable bowel syndrome (Chronic ~2016) LVH (left ventricular hypertrophy) (Acute) Migraines (Chronic) Moderate anxiety (Acute) Recurrent sinusitis (Chronic ~1999) Right ureteral stone (Acute) Seasonal allergies (Chronic ~2010) Stroke (Inactive ~2009) Tinnitus (Chronic ~1994) Tonsillectomy planned (Acute) Urolithiasis (Acute) Vertigo (Chronic ~1994) Surgical History Anesthesia (Resolved) History of throat surgery (Resolved ~2011) Hx of cystoscopy (Acute 08/25/19) Family & Social History Family History Father Cancer Diabetes mellitus Mother Dementia Grandmother History of blood clots Grandmother Cancer Social History: household members spouse Prior Living Arrangements Apartment/Condo Safety & Behavioral: Feels Safe in Current Yes Environment Been Physically Hurt or No Threatened By a Person Suicidal Ideation Description None Suicide Plan Description No Plan Tobacco & Substance use: Smoking Status Never smoker alcohol intake current alcohol intake frequency holiday/special occasion Substance Use Type does not use Meds Home Medications and Allergies Home Medications Medication Instructions Recorded Confirmed Type cyclobenzaprine 10 mg tablet 10 mg PO BEDTIME PRN #5 tab 09/03/18 10/21/19 Rx lorazepam 1 mg tablet 1 mg PO QD-BID PRN #60 tab 09/03/18 10/21/19 Rx meclizine 25 mg tablet 25 mg PO BID PRN #100 tab 09/03/18 10/21/19 Rx omeprazole 20 mg capsule,delayed 20 mg PO DAILY #90 cap 09/03/18 10/21/19 Rx release tamsulosin 0.4 mg capsule 0.4 mg PO BEDTIME #30 cap 09/25/19 10/21/19 Rx tramadol 50 mg tablet 50 mg PO Q6H PRN #30 tab 09/25/19 10/21/19 Rx tramadol 50 mg PO Q6H PRN #20 tab 10/04/19 10/21/19 Rx Allergies Allergy/AdvReac Type Severity Reaction Status Date / Time hydromorphone [From Dilaudid] Allergy Intermediate Unsure Verified 10/20/19 19:40 clindamycin Allergy Verified 10/20/19 19:40 verapamil Allergy Verified 10/20/19 19:40 meperidine [From Demerol] AdvReac Intermediate vomiting Verified 10/20/19 19:40 Review of Systems Review of Systems ROS: Yes All systems reviewed with the patient and are negative except as otherwise documented Exam Vital Signs (past 8 hours): - 10/20/19 19:32 10/20/19 19:36 10/20/19 19:38 Temperature 98.8 F Pulse Rate 96 H 96 H 95 H Respiratory Rate 20 11 L Blood Pressure 160/118 H 150/100 H Pulse Oximetry 99 99 10/20/19 19:40 10/20/19 20:00 10/20/19 20:01 Temperature Pulse Rate 94 H 94 H 103 H Respiratory Rate 11 L 21 42 H Blood Pressure 132/79 Pulse Oximetry 99 93 89 L 10/20/19 20:05 10/20/19 20:10 10/20/19 20:15 Temperature Pulse Rate 107 H 90 92 H Respiratory Rate 27 H 41 H 34 H Blood Pressure 136/65 Pulse Oximetry 92 97 98 10/20/19 20:20 10/20/19 20:25 10/20/19 20:30 Temperature Pulse Rate 90 91 H 86 Respiratory Rate 23 13 19 Blood Pressure 132/58 L Pulse Oximetry 98 96 90 L 10/20/19 20:35 10/20/19 20:40 10/20/19 20:45 Temperature Pulse Rate 93 H 90 101 H Respiratory Rate 15 15 24 Blood Pressure 152/88 H Pulse Oximetry 98 98 10/20/19 20:50 10/20/19 20:55 08/09/20 21:00 Temperature Pulse Rate 102 H 89 89 Respiratory Rate 40 H 27 H 21 Blood Pressure 143/61 H Pulse Oximetry 98 98 98 10/20/19 21:05 10/20/19 21:10 10/20/19 21:15 Temperature Pulse Rate 87 91 H 88 Respiratory Rate 30 H 16 16 Blood Pressure Pulse Oximetry 99 99 98 10/20/19 21:20 10/20/19 21:35 10/20/19 21:40 Temperature Pulse Rate 86 84 89 Respiratory Rate 24 17 Blood Pressure Pulse Oximetry 98 97 98 10/20/19 21:45 10/20/19 21:50 10/20/19 21:55 Temperature Pulse Rate 84 95 H 84 Respiratory Rate 12 23 19 Blood Pressure Pulse Oximetry 98 99 98 10/20/19 22:00 10/20/19 22:05 10/20/19 22:10 Temperature Pulse Rate 83 82 84 Respiratory Rate 18 23 13 Blood Pressure Pulse Oximetry 98 98 97 10/20/19 22:15 10/20/19 22:20 10/20/19 22:25 Temperature Pulse Rate 91 H 84 79 Respiratory Rate 21 Blood Pressure Pulse Oximetry 98 98 97 10/20/19 22:30 10/20/19 22:35 10/20/19 22:40 Temperature Pulse Rate 85 105 H 89 Respiratory Rate 17 30 H 19 Blood Pressure Pulse Oximetry 96 95 96 10/20/19 22:45 10/20/19 22:50 10/20/19 22:56 Temperature Pulse Rate 84 89 89 Respiratory Rate 15 15 13 Blood Pressure Pulse Oximetry 96 96 96 10/20/19 23:00 10/20/19 23:05 10/20/19 23:07 Temperature Pulse Rate 86 87 87 Respiratory Rate 17 22 24 Blood Pressure 117/57 L Pulse Oximetry 92 96 96 10/20/19 23:10 10/20/19 23:15 10/20/19 23:20 Temperature Pulse Rate 83 75 75 Respiratory Rate 12 16 Blood Pressure 125/61 Pulse Oximetry 97 96 97 10/20/19 23:25 10/20/19 23:30 10/20/19 23:35 Temperature Pulse Rate 79 81 79 Respiratory Rate 21 12 Blood Pressure 126/60 Pulse Oximetry 96 96 95 10/20/19 23:40 10/20/19 23:45 10/20/19 23:50 Temperature Pulse Rate 87 80 79 Respiratory Rate 19 14 17 Blood Pressure 130/63 Pulse Oximetry 98 95 95 10/20/19 23:55 10/21/19 00:00 10/21/19 00:05 Temperature Pulse Rate 84 84 82 Respiratory Rate 28 H 38 H 29 H Blood Pressure 135/74 Pulse Oximetry 97 97 95 10/21/19 00:10 10/21/19 00:15 10/21/19 00:25 Temperature 98.0 F Pulse Rate 80 85 76 Respiratory Rate 20 31 H 18 Blood Pressure 136/69 159/70 H Pulse Oximetry 98 98 97 Oxygen Delivery Method Room Air Oxygen Flow Rate 0 Narrative Exam Narrative: Gen: Alert, oriented, well-developed 64 y.o. female, mildly anxious HEENT: normocephalic, atraumatic, conjunctiva clear, sclera non-icteric, oral mucosa pink and moist Neck: supple, full ROM, no JVD, trachea is midline Resp: Lungs CTA, non-labored breathing CV: RRR, no murmur or rubs Abd: soft, non-tender, normoactive BTs Skin: no lesions or rashes, dry and intact Neuro: Alert and oriented X 4 w/no focal deficits. Speech clear and coherent. Extremities: moves all 4 extremities, is ambulatory, negative Daxa?s sign Psyche: anxious about confusion Objective Labs Result Diagrams: 10/20/19 20:10 10/20/19 20:10 Labs: Laboratory Results - last 24 hr 10/20/19 10/20/19 10/20/19 20:10 20:10 20:10 WBC 8.1 RBC 4.83 Hgb 14.2 Hct 42.6 MCV 88.2 MCH 29.5 MCHC 33.4 RDW 13.9 Plt Count 226 Neut % (Auto) 61.5 Lymph % (Auto) 30.2 [place] % (Auto) 6.2 Eos % (Auto) 1.1 L Baso % (Auto) 1.0 Neut # (Auto) 5000 Lymph # (Auto) 2400 [place] # (Auto) 500 Eos # (Auto) 100 Baso # (Auto) 100 Sodium 136 L Potassium 3.8 Chloride 103 Carbon Dioxide 25 BUN 14 Creatinine 0.73 Estimated GFR > 60.0 BUN/Creatinine Ratio 19.2 Glucose 137 H Lactate 2.2 H Calcium 9.5 Magnesium 1.8 Total Bilirubin 0.6 AST 24 ALT 16 Alkaline Phosphatase 65 Total Creatine Kinase 32 CK-MB (CK-2) TNP CK-MB (CK-2) Rel Index TNP Troponin I < 0.012 C-Reactive Protein < 0.5 NT-Pro-B Natriuret Pep 100 Total Protein 7.2 Albumin 4.1 Globulin 3.1 Albumin/Globulin Ratio 1.3 Procalcitonin Urine Color Urine Appearance Urine pH Ur Specific [place] Urine Protein Urine Glucose (UA) Urine Ketones Urine Occult Blood Urine Nitrate Urine Bilirubin Urine Urobilinogen Ur Leukocyte Esterase Urine RBC Urine WBC Ur Squamous Epith Cells Calcium Oxalate Crystal Urine Bacteria Ur Culture Indicated? COVID-19 PCR 10/20/19 10/20/19 10/20/19 20:18 20:48 22:30 WBC RBC Hgb Hct MCV MCH MCHC RDW Plt Count Neut % (Auto) Lymph % (Auto) [place] % (Auto) Eos % (Auto) Baso % (Auto) Neut # (Auto) Lymph # (Auto) [place] # (Auto) Eos # (Auto) Baso # (Auto) Sodium Potassium Chloride Carbon Dioxide BUN Creatinine Estimated GFR BUN/Creatinine Ratio Glucose Lactate 1.3 Calcium Magnesium Total Bilirubin AST ALT Alkaline Phosphatase Total Creatine Kinase CK-MB (CK-2) CK-MB (CK-2) Rel Index Troponin I C-Reactive Protein NT-Pro-B Natriuret Pep Total Protein Albumin Globulin Albumin/Globulin Ratio Procalcitonin < 0.05 Urine Color Yellow Urine Appearance Cloudy Urine pH 6.5 Ur Specific [place] <=1.005 Urine Protein Trace H Urine Glucose (UA) Negative Urine Ketones Negative Urine Occult Blood 3+ H Urine Nitrate Negative Urine Bilirubin Negative Urine Urobilinogen 0.2 Ur Leukocyte Esterase 3+ H Urine RBC 1-5/hpf Urine WBC 30-100/hpf H Ur Squamous Epith Cells 1-5 /hpf D Calcium Oxalate Crystal Occasional H Urine Bacteria Many (>30) H Ur Culture Indicated? Specimen cultured COVID-19 PCR 10/20/19 23:37 WBC RBC Hgb Hct MCV MCH MCHC RDW Plt Count Neut % (Auto) Lymph % (Auto) [place] % (Auto) Eos % (Auto) Baso % (Auto) Neut # (Auto) Lymph # (Auto) [place] # (Auto) Eos # (Auto) Baso # (Auto) Sodium Potassium Chloride Carbon Dioxide BUN Creatinine Estimated GFR BUN/Creatinine Ratio Glucose Lactate Calcium Magnesium Total Bilirubin AST ALT Alkaline Phosphatase Total Creatine Kinase CK-MB (CK-2) CK-MB (CK-2) Rel Index Troponin I C-Reactive Protein NT-Pro-B Natriuret Pep Total Protein Albumin Globulin Albumin/Globulin Ratio Procalcitonin Urine Color Urine Appearance Urine pH Ur Specific [place] Urine Protein Urine Glucose (UA) Urine Ketones Urine Occult Blood Urine Nitrate Urine Bilirubin Urine Urobilinogen Ur Leukocyte Esterase Urine RBC Urine WBC Ur Squamous Epith Cells Calcium Oxalate Crystal Urine Bacteria Ur Culture Indicated? COVID-19 PCR Negative Assessment & Plan Assessment & Plan narrative: Joleen Crowe will be admitted for a complicated UTI likely secondary to the urethral stent placement. Complicated upper tract UTI, acute, present on admission -She has been intiated on ceftriaxone 1 gram daily -pain control with tylenol, ultram and low dose ketoralac -Dr. 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 Bardales, consult and involvement is appreciated. Patient is admitted under inpatient status with expected length of stay greater than 2 midnights due to severity of presenting symptoms, risk of adverse event, and complexity of treatment plan. FEN: NS at 100 ml/hour, general diet, BMP and magnesium in the am. VTE prophylaxis: Bilateral SCDs Dispo: Probable discharge to home Code Status: Full code as discussed with patient Quality VTE Deep Vein Thrombosis/Pulmonary Embolism Present on Admission: No
--- NOTE | 2019-10-21 02:05 | PC.NURSE ---
0025 Pt. admitted to room 207, accompanied by her Spouse Mykel Dorsey. Alert & oriented x3, reports having urinary frequency. BSC at the bedside. Valuables with patient in bed, spouse forgot to take it with him. Pt. states I'll let my bring my purse home in the morning. Will cont. POC & monitor.
[2019-10-21 06:55] LABS: Add Manual Diff / Slide Review NO; Basophils Absolute Auto 100 /uL (0-100); Basophils Percent Auto 1.3 % (0-2); Eosinophils Absolute Auto 100 /uL (0-450); Hematocrit 39.1 % (36-46); Hemoglobin 12.9 g/dL (12.0-16.0); Lymphocytes Absolute Auto 2500 /uL (1100-4500); Lymphocytes Percent Auto 37.1 % (25-40); Mean Corpuscular Hemoglobin 29.1 PG (26-34); Mean Corpuscular Volume 88.1 fL (80-100); Monocytes Absolute Auto 500 /uL (0-900); Monocytes Percent Auto 7.2 % (3-14); Neutrophils Absolute Auto 3600 /uL (1500-7000); Neutrophils Percent Auto 53.4 % (50-75); Platelet Count 194 X10^3/uL (150-400); Red Blood Cell Count 4.43 X10^6/uL (4.0-5.2); Red Cell Distribution Width 14.2 % (11.6-14.8); White Blood Cell Count 6.8 X10^3/uL (4.5-11.0)
[2019-10-21 07:05] LABS: BUN Creatinine Ratio 15.2 (6-22); Blood Urea Nitrogen 10 mg/dL (7-17); Carbon Dioxide 24 mmol/L (22-32); Chloride 111 mmol/L (98-107); Estimated Glomerular Filt Rate > 60.0 mL/min (>60); Glucose 100 mg/dL (80-110); HEMOLYSIS < 15 (0-50); Potassium 4.1 mmol/L (3.4-5.1); Sodium 140 mmol/L (137-145)
--- NOTE | 2019-10-21 08:33 | PC.NURSE ---
Day shift: Pt reports that she didn't sleep hardly at all last night and the SCD's keep her awake. She agrees to have them on when leeann is awake though. Call light in reach.
[2019-10-21 08:35] LABS: Procalcitonin < 0.05 ng/mL (<0.5)
[2019-10-21] MEDS: LORazepam 1 MG TABLET PO (09:33)
--- NOTE | 2019-10-21 10:57 | CM.DANOTE ---
Patient is a 64 year old female who was admitted on 10/20/19 for Dizziness. Pt has [place] and [place] for insurance and her PCP is Dr. Sylvain Espinoza. EMR was reviewed. Per MD, pt with hx of CVA 10 yrs ago and recently had Urology place stent with follow up appointment tomorrow 10/22/[address] Bardales for removal. Pt with kidney infection/complicated UTI with Consult for Urology. Per RN, pt somewhat anxious and given Ativan and feels better. PT ordered and pending. SW met bedside with pt and explained role and pt confirms that she lives in [place] with her supportive but spends time in [place] part of the year but they came back due to the high positive cases of COVID in [place]. Pt is independent with ADL's at baseline and confirms that after her CVA years ago she had Inpt Rehab before going home but denies any recent hx of SNF or HH. Pt's DPOA is her and she also has local supportive son and DIL. Pt confirms that her infection has reminded her of her fuzzy head, feeling confused and off which was similar to her CVA. Preference is home pending PT and Urology Consult. Plan: SW to follow closely after PT initial eval and recommendations and Urology Consult towards determining if pt will be safe for d/c home with spouse when stable. JOHN Domínguez Discharge Planning/Care Management Advanced directive, confirm from FAMILY Start: 10/21/19 01:13 Freq: Q24H Status: Active Protocol: Document 10/21/19 08:25 YAD (Rec: 10/21/19 08:33 YAD [id number]) Advance Directive, confirm on record Time 08:25 Person contacted Pt Copy received No CM Discharge Assessment Start: 10/21/19 10:54 Freq: Status: Active Protocol: Document 10/21/19 10:54 BF (Rec: 10/21/19 10:57 BF [id number]) Discharge Planning Assessment Assigned Analog Design Engineer JOHN Emerson DPOA/Assigned Designee Name Mykel Dorsey Contact Information [phone] Advance Directives? Yes Advance Directives on File No History Provided By Patient,Medical Record Has Patient been admitted in last 30 No days? Prior Living Arrangements Apartment/Condo Household Members spouse Type of transporation used prior to Drives own vehicle admit Independent with ADL's Yes Is patient alert and oriented? Yes Caregiver for Another No Comment waiting for PT initial eval and recommendations Barriers to Discharge No Discharge Plan Home Transportation Arrangement Spouse local and available for transport at d/c Referrals Initiated None needed Additional Comment Pending PT eval and recommendations Whiteboard Updated in Patient Room with Yes name and ext. # of Analog Design Engineer Review Status In Process Please Provide Date Initial DC 10/21/19 Assessment Was Performed Next Review Type Continued Stay Review
--- NOTE | 2019-10-21 12:56 | PT.IIE ---
Current Diagnoses Urinary tract infection, site not specified (10/20/19) Surgical History (Last Reviewed 10/21/19 @ 06:22 by Chinedu Armstrong DO) Anesthesia (Resolved) History of throat surgery (Resolved ~2011) Hx of cystoscopy (Acute 08/25/19) Medical History (Last Reviewed 10/21/19 @ 06:22 by Chinedu Armstrong DO) Chicken pox (Resolved) GERD (gastroesophageal reflux disease) (Acute) Hydronephrosis of right kidney (Acute) Hyperglycemia (Acute) Irritable bowel syndrome (Chronic ~2016) LVH (left ventricular hypertrophy) (Acute) Migraines (Chronic) Moderate anxiety (Acute) Recurrent sinusitis (Chronic ~1999) Right ureteral stone (Acute) Seasonal allergies (Chronic ~2010) Stroke (Inactive ~2009) Tinnitus (Chronic ~1994) Tonsillectomy planned (Acute) Urolithiasis (Acute) Vertigo (Chronic ~1994) Physical Therapy Inpatient Evaluation/Re-Eval M1 PT/OT-IP Prior Functional Status Start: 10/21/19 11:11 Freq: NEEDED Status: Active Protocol: Document 10/21/19 12:16 AW (Rec: 10/21/19 12:56 AW [email or web address]) Medical Review Prior Functional Status Medical History Reviewed Yes Diet/Fluid Consistency Regular Communication Pt is an effective verbal communicator at baseline. She presented to ED with complaints of short-term memory loss, aphasia, and word -finding difficulty but is fluent with speech at this encounter. Mobility and Gait Pt has history of vestibular dysfunction dating back more than 10 years. She has complex migraines with aura. She had a CVA 10 years ago which affected her left-sided strength. All of these factors affect her balance. When she is having a migraine, her assists her with mobility but she is otherwise independent. She states she fell two years ago while walking on cement in [place]. I just went down without warning. Pt denies any falls since that incident. Activities of Daily Living and IADL's Independent. Pt states she does not drive. Prior Functional Level (Other details) Pt had recent lithotripsy for kidney stones and ureteral stent placement. Social History Household Members spouse Living Arrangements Apartment/Condo Number of Floors (Floors) Two Floors Number of Stairs To Enter/Railing? 2 YOBANY without railing. Once inside, pt climbs 12 stairs with a sturdy right-sided railing to access her bedroom. Home Environment High Toilet,Walk in Shower,Tub /Shower Home Equipment Straight Cane,Hand Held Shower ,Grab Bars In Shower Employment Status Retired Additional Social History Comment Pt lives with her , Mykel, who is also retired. They split their time between [place] and [place]. She was employed in the [employer] industry, traveling frequently , but had to retire at 47 yo due to disability related to her vestibular dysfunction. M2 PT-IP Current Condition Start: 10/21/19 11:11 Freq: NEEDED Status: Active Protocol: Document 10/21/19 12:16 AW (Rec: 10/21/19 12:56 AW [email or web address]) Physical Therapy Current Condition Current Condition Evaluation Date 10/21/19 Treatment Diagnosis UTI, metabolic encephalopathy, vestibular dysfunction; difficulty in walkin Onset Date 10/20/19 Precautions Other Precautions falls risk M3 PT-IP Subjective Start: 10/21/19 11:11 Freq: NEEDED Status: Active Protocol: Document 10/21/19 12:16 AW (Rec: 10/21/19 12:56 AW [email or web address]) Subjective Physical Therapy Visit Type Type Initial Evaluation Visit Start Time 11:38 Visit Stop Time 12:04 Total Visit Minutes 26 Number of DIALYSIS TECHNICIAN Visits 0 Physical Therapy Visit Comments Patient Comments Pt has had trouble sleeping but is willing to participate with PT Patient Goals Pt hopes to return home at discharge Therapy Pain Assessment Pain When Pain Assessed During Mobility Pain Present Pain Present Denied Pain M4 PT-IP Mobility and Gait Start: 10/21/19 11:11 Freq: NEEDED Status: Active Protocol: Document 10/21/19 12:16 AW (Rec: 10/21/19 12:56 AW [email or web address]) PT-Bed Mobility Assessment Supine to Sit Supine to Sit Standby Assistance Scooting Scooting to Edge of Bed Independent PT-Transfer Assessment Sit to and From Stand Sit to and from Stand Contact Guard Assistance Equipment Transfer Assistive Device Gait Belt Transfers Transfer Destination Bed Transfer Technique pt ambulated without AD Transfer Ability Level of Assist Standby Assistance Comments Mobility Comments Pt was resting comfortably on her left side when PT arrived. She completed sidelying to sit SBA and sat EOB with slight leftward lean SBA. She stood from the bed with need for CGA due to initial unsteadiness. She stepped away from the bed for static balance assessment and then ambulated a total of 150 feet in the halls. Gait was ataxic and unsteady with pt reaching for partitions and smith >5 times to steady herself. CGA was required at all times, increasing to min assist for recovery from posterior and lateral LOB. Pt returned to the room and requested to go back to bed. She sat and completed sit to supine SBA. She reported excessive fatigue relative to the activity completed. Pt was positioned in the bed with call light and all needs within reach, bed alarm armed for safety. Gait Assessment Gait Gait Assistance Required: Minimum Assistance,1 Person Assist Distance (Feet) 150 Assistive Devices Assistive Device Gait Belt Gait Deviations General Gait Pattern Ataxic,Decreased Stride Length ,Decreased Feet Clearance, Flexed Trunk,Lateral Trunk Lean,Narrow Based Gait Factors Limiting Gait Function Factors Limiting Gait Function Decreased Activity Tolerance, Decreased Sensation,Decreased Strength,Incoordination,Poor Balance,Poor Safety Awareness Comments Gait Comments See mobility comments for details. Stair Climbing Assessment Comments Stair Climbing Comments Not assessed . PT-Balance Assessment Sitting Balance and Reactions Static Sitting Balance Ability Normal Dynamic Sitting Balance Ability Good Standing Balance and Reactions Static Standing Balance Ability Fair Dynamic Standing Balance Ability Poor Device Used no AD Balance Tests Single Limb Standing 2 sec R; unable L Tandem Standing unable to get into position Comments Other Balance Tests/Deviations/Treatment NBOS: excessive sway with EO, : increased sway with EC requiring min assist for posterior LOB M5 PT-IP Objective Assessments Start: 10/21/19 11:11 Freq: NEEDED Status: Active Protocol: Document 10/21/19 12:16 AW (Rec: 10/21/19 12:56 AW [email or web address]) Orientation Orientation/Cognition Level of Alertness Confusional State Orientation Name,Place,Situation Language Function Ability No Deficits Noted Safety Awareness Decreased Safety Awareness Memory Description Short Term Impaired,Industrial Engineering Intern Impaired Comments Pt was oriented to self, situation, and place. She reported the month was March and the year 2020. Gross Range of Motion Upper Extremity ROM Assessment Within Functional Limits Lower Extremity ROM Assessment Within Functional Limits Strength Upper Extremity Strength Assessment Left Impaired Lower Extremity Strength Assessment Left Impaired Hip 4-/5 Knee 4-/5 Ankle 4/5 Comments Strength Comments RLE grossly 4/5 LUE drift with EO and EC; unable to hold against gravity Coordination Assessment Gross Coordination Gross Coordination Impaired Assessment Finger to Nose Test Moderate Impairment Pronation/Supination Test Minimal Impairment Coordination Comments Signs of dysmetria with missed target on finger to nose 3 cm RUE and >6 cm LUE. Sensation Assessment Sensation Gross Sensation Right LE Impaired,Left LE Impaired Light Touch Impaired Proprioception (Position) Impaired Sensation Description Tingling Comments Sensation Comments Pt reports tingling at bilateral feet which is not typical of her baseline. She states this symptom has improved somewhat over 24 hours. Muscle Tone Muscle Tone WNL Yes Other Assessments Other Other Assessments Mild gaze-evoked nystagmus noted bilaterally. Occulomotor exam was grossly normal with smooth pursuits but mild dizziness was reported with convergence/divergence. M6 PT-IP Treatment Start: 10/21/19 11:11 Freq: NEEDED Status: Active Protocol: Document 10/21/19 12:16 AW (Rec: 10/21/19 12:56 AW [email or web address]) Physical Therapy Treatment Education Education Provided Safety Other Treatments Other Treatment Performed Provided education on role of PT, plan of care, and balance systems integration. M7 PT-IP Assessment and Plan Start: 10/21/19 11:11 Freq: NEEDED Status: Active Protocol: Document 10/21/19 12:16 AW (Rec: 10/21/19 12:56 AW [email or web address]) PT Summary Assessment and Plan Potential Rehabilitation Potential Good Status of Condition at Evaluation Evolving Summary Impairments Strength,Balance,Coordination, Sensation,Cognition,Bed Mobility,Transfers,Gait, Activity Tolerance Assessment Summary Joleen is a 64 yo woman with known vestibular dysfunction, history of CVA with resultant left-sided weakness, and history of complex migraine. She was seen for PT evaluation after being admitted with UTI and metabolic encephalopathy. She recently had lithotripsy for kidney stone as well as ureteral stent placement. At baseline, pt endorses difficulty with her balance but she remains an independent ambulator without assisitive device. She states her provides mobility assist when she is having a migraine. On evaluation, pt required CGA for balance at all times and min assist for recovery from multiple losses of balance ( posterior and lateral). Pt reports this is well below her baseline mobility status. PT anticipates the pt will be safe to discharge home with assist once medically cleared. Will continue to assess and refine discharge recommendation based on progress. Goals Bed Mobility Goal Independent Transfer Goal Independent Gait Goal Independent Gait Distance 250 Other Goals - up/down 12 steps with R rail ascending IND Days to Meet Goals 3 Frequency of Treatment Frequency Of Treatment Once a Day Treatment Plan Physical Therapy Treatment Plan Bed Mobility Training,Transfer Training,Gait Training, Therapeutic Exercise,Balance Retraining,Discharge Planning, Neuromuscular Re-ed Other Recommendations and Next Treatment balance interventions; gait Focus training without AD or with LRAD as needed; stairs when able Recommendations To Nursing Amount of Assist Needed 1 Person Assist Discharge Recommendations PT Discharge Recommendations Home with Assistance Other Discharge Recommendations Pt to establish with neurologist and ENT Transportation Needs at Discharge Private Vehicle
--- NOTE | 2019-10-21 14:40 | P.PN_ITS ---
Subjective Subjective Date Patient Seen: 10/21/19 Interval history: Brief progress note: Patient seen and examined. Physical exam unchanged. Metabolic encephalopathy resolved. Interestingly, the urinalysis appears grossly infected but the patient has no systemic signs of infection other than mild tachycardia in ED and white count and procalcitonin remain negative. CT abdomen and pelvis with contrast demonstrated stable placement of right double-J ureteral stent, mild dilatation of the right renal collecting system and right renal pelvis with adjacent fat stranding extending along the proximal 3rd of the right ureter. Patient is being treated for pyelonephritis and concern for possible obstructive uropathy for which Dr. Bardales was contacted and will plan to see patient at bedside with possible removal of ureteral stent. If he is unable to find the retrieval cord then he will need to reschedule her outpatient ureteral stent removal from tomorrow to a future date. We appreciate his time and recommendations. Continue ceftriaxone 1 g IV daily pending urine culture identification and sensitivities. Exam Vital Signs (past 8 hours): - 10/21/19 08:25 10/21/19 09:38 Temperature 98.7 F Pulse Rate 70 Respiratory Rate 16 Blood Pressure 147/90 H Pulse Oximetry 97 98 Oxygen Delivery Method Room Air Oxygen Flow Rate 0 Objective Labs Result Diagrams: 10/21/19 06:48 10/21/19 06:48 Labs: Laboratory Results - last 24 hr 10/20/19 10/20/19 10/20/19 20:10 20:10 20:10 WBC 8.1 RBC 4.83 Hgb 14.2 Hct 42.6 MCV 88.2 MCH 29.5 MCHC 33.4 RDW 13.9 Plt Count 226 Neut % (Auto) 61.5 Lymph % (Auto) 30.2 [place] % (Auto) 6.2 Eos % (Auto) 1.1 L Baso % (Auto) 1.0 Neut # (Auto) 5000 Lymph # (Auto) 2400 [place] # (Auto) 500 Eos # (Auto) 100 Baso # (Auto) 100 Sodium 136 L Potassium 3.8 Chloride 103 Carbon Dioxide 25 BUN 14 Creatinine 0.73 Estimated GFR > 60.0 BUN/Creatinine Ratio 19.2 Glucose 137 H Lactate 2.2 H Calcium 9.5 Magnesium 1.8 Total Bilirubin 0.6 AST 24 ALT 16 Alkaline Phosphatase 65 Total Creatine Kinase 32 CK-MB (CK-2) TNP CK-MB (CK-2) Rel Index TNP Troponin I < 0.012 C-Reactive Protein < 0.5 NT-Pro-B Natriuret Pep 100 Total Protein 7.2 Albumin 4.1 Globulin 3.1 Albumin/Globulin Ratio 1.3 Procalcitonin Urine Color Urine Appearance Urine pH Ur Specific [place] Urine Protein Urine Glucose (UA) Urine Ketones Urine Occult Blood Urine Nitrate Urine Bilirubin Urine Urobilinogen Ur Leukocyte Esterase Urine RBC Urine WBC Ur Squamous Epith Cells Calcium Oxalate Crystal Urine Bacteria Ur Culture Indicated? COVID-19 PCR 10/20/19 10/20/19 10/20/19 20:18 20:48 22:30 WBC RBC Hgb Hct MCV MCH MCHC RDW Plt Count Neut % (Auto) Lymph % (Auto) [place] % (Auto) Eos % (Auto) Baso % (Auto) Neut # (Auto) Lymph # (Auto) [place] # (Auto) Eos # (Auto) Baso # (Auto) Sodium Potassium Chloride Carbon Dioxide BUN Creatinine Estimated GFR BUN/Creatinine Ratio Glucose Lactate 1.3 Calcium Magnesium Total Bilirubin AST ALT Alkaline Phosphatase Total Creatine Kinase CK-MB (CK-2) CK-MB (CK-2) Rel Index Troponin I C-Reactive Protein NT-Pro-B Natriuret Pep Total Protein Albumin Globulin Albumin/Globulin Ratio Procalcitonin < 0.05 Urine Color Yellow Urine Appearance Cloudy Urine pH 6.5 Ur Specific [place] <=1.005 Urine Protein Trace H Urine Glucose (UA) Negative Urine Ketones Negative Urine Occult Blood 3+ H Urine Nitrate Negative Urine Bilirubin Negative Urine Urobilinogen 0.2 Ur Leukocyte Esterase 3+ H Urine RBC 1-5/hpf Urine WBC 30-100/hpf H Ur Squamous Epith Cells 1-5 /hpf D Calcium Oxalate Crystal Occasional H Urine Bacteria Many (>30) H Ur Culture Indicated? Specimen cultured COVID-19 PCR 10/20/19 10/21/19 10/21/19 23:37 06:48 06:48 WBC 6.8 RBC 4.43 Hgb 12.9 Hct 39.1 MCV 88.1 MCH 29.1 MCHC 33.0 RDW 14.2 Plt Count 194 Neut % (Auto) 53.4 Lymph % (Auto) 37.1 [place] % (Auto) 7.2 Eos % (Auto) 1.0 L Baso % (Auto) 1.3 Neut # (Auto) 3600 Lymph # (Auto) 2500 [place] # (Auto) 500 Eos # (Auto) 100 Baso # (Auto) 100 Sodium 140 Potassium 4.1 Chloride 111 H Carbon Dioxide 24 BUN 10 Creatinine 0.66 Estimated GFR > 60.0 BUN/Creatinine Ratio 15.2 Glucose 100 Lactate Calcium 9.0 Magnesium Total Bilirubin AST ALT Alkaline Phosphatase Total Creatine Kinase CK-MB (CK-2) CK-MB (CK-2) Rel Index Troponin I C-Reactive Protein NT-Pro-B Natriuret Pep Total Protein Albumin Globulin Albumin/Globulin Ratio Procalcitonin Urine Color Urine Appearance Urine pH Ur Specific [place] Urine Protein Urine Glucose (UA) Urine Ketones Urine Occult Blood Urine Nitrate Urine Bilirubin Urine Urobilinogen Ur Leukocyte Esterase Urine RBC Urine WBC Ur Squamous Epith Cells Calcium Oxalate Crystal Urine Bacteria Ur Culture Indicated? COVID-19 PCR Negative 10/21/19 06:48 WBC RBC Hgb Hct MCV MCH MCHC RDW Plt Count Neut % (Auto) Lymph % (Auto) [place] % (Auto) Eos % (Auto) Baso % (Auto) Neut # (Auto) Lymph # (Auto) [place] # (Auto) Eos # (Auto) Baso # (Auto) Sodium Potassium Chloride Carbon Dioxide BUN Creatinine Estimated GFR BUN/Creatinine Ratio Glucose Lactate Calcium Magnesium Total Bilirubin AST ALT Alkaline Phosphatase Total Creatine Kinase CK-MB (CK-2) CK-MB (CK-2) Rel Index Troponin I C-Reactive Protein NT-Pro-B Natriuret Pep Total Protein Albumin Globulin Albumin/Globulin Ratio Procalcitonin < 0.05 Urine Color Urine Appearance Urine pH Ur Specific [place] Urine Protein Urine Glucose (UA) Urine Ketones Urine Occult Blood Urine Nitrate Urine Bilirubin Urine Urobilinogen Ur Leukocyte Esterase Urine RBC Urine WBC Ur Squamous Epith Cells Calcium Oxalate Crystal Urine Bacteria Ur Culture Indicated? COVID-19 PCR Quality VTE Deep Vein Thrombosis/Pulmonary Embolism Present on Admission: No
--- NOTE | 2019-10-21 15:50 | PC.NURSE ---
Addendum entered by Blessing Hilton R.N. 10/21/19 22:07: Pt had uneventful evening. Assisted to BSC , voided 300 HL intact/patent. Condition remains essentially unchanged. Call light w/in reach, bed alarm on for pt safety. Continue w/plan of care. Original Note: Pt resting @ intervals. Lungs clear, SpO2 96% RA. Pt oriented x 3, on occassion has to think a minute. Pt states that this is better. HL RAC intact/patent. Call light w/in reach, bed alarm on for pt safety.
--- NOTE | 2019-10-21 17:13 | P.CONS_ITS ---
History of Present Illness Consult details Date Patient Seen: 10/21/19 Time Patient Seen: 17:13 Chief complaint: dizzy Reason for consult: Recent ureteral stone surgery, rule out right pyelonephritis. Requesting provider: Janeth Nunez Narrative: The patient is a 64-year-old white female status post right urete roscopic laser lithotripsy and stent exchange on 10/04/2019. She was doing well until about a day ago when confusion and some cognitive changes were noted by her and her . She presented to the [facility] ED where stroke evaluation was unremarkable. CT KUB showed mild. Angelique ureteral stranding in the proximal right ureter. There was no evidence of stone, stone fragment, or fluid collection. She had a postop appointment schedule in my office tomorrow for right ureteral stent removal. Request is now made for a in hospital visit and stent removal. A retrieval line was left attached to the stent at surgery on 10/04/2019. Meds Home Medications and Allergies Home Medications Medication Instructions Recorded Confirmed Type cyclobenzaprine 10 mg tablet 10 mg PO BEDTIME PRN #5 tab 09/03/18 10/21/19 Rx lorazepam 1 mg tablet 1 mg PO QD-BID PRN #60 tab 09/03/18 10/21/19 Rx meclizine 25 mg tablet 25 mg PO BID PRN #100 tab 09/03/18 10/21/19 Rx omeprazole 20 mg capsule,delayed 20 mg PO DAILY #90 cap 09/03/18 10/21/19 Rx release tamsulosin 0.4 mg capsule 0.4 mg PO BEDTIME #30 cap 09/25/19 10/21/19 Rx tramadol 50 mg tablet 50 mg PO Q6H PRN #30 tab 09/25/19 10/21/19 Rx tramadol 50 mg PO Q6H PRN #20 tab 10/04/19 10/21/19 Rx Allergies Allergy/AdvReac Type Severity Reaction Status Date / Time hydromorphone [From Dilaudid] Allergy Intermediate Unsure Verified 10/20/19 19:40 clindamycin Allergy Verified 10/20/19 19:40 verapamil Allergy Verified 10/20/19 19:40 meperidine [From Demerol] AdvReac Intermediate vomiting Verified 10/20/19 19:40 Exam Vital Signs (past 8 hours): - 10/21/19 09:38 10/21/19 15:46 10/21/19 15:56 Temperature 98.7 F 97.5 F L Pulse Rate 70 70 Respiratory Rate 16 15 Blood Pressure 147/90 H 122/72 Pulse Oximetry 98 96 98 Oxygen Delivery Method Room Air Oxygen Flow Rate 0 Narrative Exam Narrative: Well-developed moderately over nourished white female looking a bit fatigued, but lying comfortably in upright position in bed. Chest-equal unlabored expansion bilaterally. Heart-regular rate and rhythm. No extra sounds heard. Abdomen-moderately obese, soft, doughy, with normal active bowel sounds. Genitalia-normal adult female with visible retrieval line in the inner labia. The stent was gently removed at the bedside by with draw all of the retrieval lines. The stent was discarded. Objective Labs Result Diagrams: 10/21/19 06:48 10/21/19 06:48 Labs: Laboratory Results - last 24 hr 10/20/19 10/20/19 10/20/19 20:10 20:10 20:10 WBC 8.1 RBC 4.83 Hgb 14.2 Hct 42.6 MCV 88.2 MCH 29.5 MCHC 33.4 RDW 13.9 Plt Count 226 Neut % (Auto) 61.5 Lymph % (Auto) 30.2 [place] % (Auto) 6.2 Eos % (Auto) 1.1 L Baso % (Auto) 1.0 Neut # (Auto) 5000 Lymph # (Auto) 2400 [place] # (Auto) 500 Eos # (Auto) 100 Baso # (Auto) 100 Sodium 136 L Potassium 3.8 Chloride 103 Carbon Dioxide 25 BUN 14 Creatinine 0.73 Estimated GFR > 60.0 BUN/Creatinine Ratio 19.2 Glucose 137 H Lactate 2.2 H Calcium 9.5 Magnesium 1.8 Total Bilirubin 0.6 AST 24 ALT 16 Alkaline Phosphatase 65 Total Creatine Kinase 32 CK-MB (CK-2) TNP CK-MB (CK-2) Rel Index TNP Troponin I < 0.012 C-Reactive Protein < 0.5 NT-Pro-B Natriuret Pep 100 Total Protein 7.2 Albumin 4.1 Globulin 3.1 Albumin/Globulin Ratio 1.3 Procalcitonin Urine Color Urine Appearance Urine pH Ur Specific [place] Urine Protein Urine Glucose (UA) Urine Ketones Urine Occult Blood Urine Nitrate Urine Bilirubin Urine Urobilinogen Ur Leukocyte Esterase Urine RBC Urine WBC Ur Squamous Epith Cells Calcium Oxalate Crystal Urine Bacteria Ur Culture Indicated? COVID-19 PCR 10/20/19 10/20/19 10/20/19 20:18 20:48 22:30 WBC RBC Hgb Hct MCV MCH MCHC RDW Plt Count Neut % (Auto) Lymph % (Auto) [place] % (Auto) Eos % (Auto) Baso % (Auto) Neut # (Auto) Lymph # (Auto) [place] # (Auto) Eos # (Auto) Baso # (Auto) Sodium Potassium Chloride Carbon Dioxide BUN Creatinine Estimated GFR BUN/Creatinine Ratio Glucose Lactate 1.3 Calcium Magnesium Total Bilirubin AST ALT Alkaline Phosphatase Total Creatine Kinase CK-MB (CK-2) CK-MB (CK-2) Rel Index Troponin I C-Reactive Protein NT-Pro-B Natriuret Pep Total Protein Albumin Globulin Albumin/Globulin Ratio Procalcitonin < 0.05 Urine Color Yellow Urine Appearance Cloudy Urine pH 6.[address] <=1.005 Urine Protein Trace H Urine Glucose (UA) Negative Urine Ketones Negative Urine Occult Blood 3+ H Urine Nitrate Negative Urine Bilirubin Negative Urine Urobilinogen 0.2 Ur Leukocyte Esterase 3+ H Urine RBC 1-5/hpf Urine WBC 30-100/hpf H Ur Squamous Epith Cells 1-5 /hpf D Calcium Oxalate Crystal Occasional H Urine Bacteria Many (>30) H Ur Culture Indicated? Specimen cultured COVID-19 PCR 10/20/19 10/21/19 10/21/19 23:37 06:48 06:48 WBC 6.8 RBC 4.43 Hgb 12.9 Hct 39.1 MCV 88.1 MCH 29.1 MCHC 33.0 RDW 14.2 Plt Count 194 Neut % (Auto) 53.4 Lymph % (Auto) 37.1 [place] % (Auto) 7.2 Eos % (Auto) 1.0 L Baso % (Auto) 1.3 Neut # (Auto) 3600 Lymph # (Auto) 2500 [place] # (Auto) 500 Eos # (Auto) 100 Baso # (Auto) 100 Sodium 140 Potassium 4.1 Chloride 111 H Carbon Dioxide 24 BUN 10 Creatinine 0.66 Estimated GFR > 60.0 BUN/Creatinine Ratio 15.2 Glucose 100 Lactate Calcium 9.0 Magnesium Total Bilirubin AST ALT Alkaline Phosphatase Total Creatine Kinase CK-MB (CK-2) CK-MB (CK-2) Rel Index Troponin I C-Reactive Protein NT-Pro-B Natriuret Pep Total Protein Albumin Globulin Albumin/Globulin Ratio Procalcitonin Urine Color Urine Appearance Urine pH Ur Specific [place] Urine Protein Urine Glucose (UA) Urine Ketones Urine Occult Blood Urine Nitrate Urine Bilirubin Urine Urobilinogen Ur Leukocyte Esterase Urine RBC Urine WBC Ur Squamous Epith Cells Calcium Oxalate Crystal Urine Bacteria Ur Culture Indicated? COVID-19 PCR Negative 10/21/19 06:48 WBC RBC Hgb Hct MCV MCH MCHC RDW Plt Count Neut % (Auto) Lymph % (Auto) [place] % (Auto) Eos % (Auto) Baso % (Auto) Neut # (Auto) Lymph # (Auto) [place] # (Auto) Eos # (Auto) Baso # (Auto) Sodium Potassium Chloride Carbon Dioxide BUN Creatinine Estimated GFR BUN/Creatinine Ratio Glucose Lactate Calcium Magnesium Total Bilirubin AST ALT Alkaline Phosphatase Total Creatine Kinase CK-MB (CK-2) CK-MB (CK-2) Rel Index Troponin I C-Reactive Protein NT-Pro-B Natriuret Pep Total Protein Albumin Globulin Albumin/Globulin Ratio Procalcitonin < 0.05 Urine Color Urine Appearance Urine pH Ur Specific [place] Urine Protein Urine Glucose (UA) Urine Ketones Urine Occult Blood Urine Nitrate Urine Bilirubin Urine Urobilinogen Ur Leukocyte Esterase Urine RBC Urine WBC Ur Squamous Epith Cells Calcium Oxalate Crystal Urine Bacteria Ur Culture Indicated? COVID-19 PCR Assessment & Plan Assessment and plan (1) Retained ureteral stent: Status: Acute Assessment & Plan narrative: Assessment: 1. Right ureteral stent successfully removed at bedside in a 64-year-old female with a history of an obstructing 6 x 8 mm right proximal ureteral calculus and right ureteral stent. Plan: 1. Recommend treatment of presumed UTI based on culture when sensitivities and final ID identification available. 2. Request outpatient follow-up in 6-8 weeks with metabolic stone risk eval uation.
[2019-10-21] MEDS: TRAMADOL 50 MG TABLET PO (19:24)
[2019-10-21] MEDS: TAMSULOSIN 0.4 MG CAPSULE PO (20:20)
[2019-10-21] MEDS: CEFTRIAXONE 1 GM/50 ML FROZ.PIGGY IV (20:20)
[2019-10-22 00:20] VITALS: BP 106/68; PULSE 74; RESP 18; TEMP 36.5; O2SAT 98
[2019-10-22 00:28] VITALS: O2SAT 97
[2019-10-22] MEDS: ACETAMINOPHEN 325 MG TABLET 650 MG PO (06:21)
[2019-10-22 06:31] LABS: Add Manual Diff / Slide Review NO; Basophils Absolute Auto 100 /uL (0-100); Basophils Percent Auto 1.2 % (0-2); Eosinophils Absolute Auto 200 /uL (0-450); Eosinophils Percent Auto 4.2 % (2-4); Hematocrit 38.6 % (36-46); Hemoglobin 12.8 g/dL (12.0-16.0); Lymphocytes Absolute Auto 2500 /uL (1100-4500); Lymphocytes Percent Auto 53.5 % (25-40); Mean Corpuscular HGB Conc 33.1 % (30-36); Mean Corpuscular Hemoglobin 29.5 PG (26-34); Mean Corpuscular Volume 89.2 fL (80-100); Monocytes Absolute Auto 400 /uL (0-900); Neutrophils Absolute Auto 1600 /uL (1500-7000); Neutrophils Percent Auto 33.1 % (50-75); Platelet Count 179 X10^3/uL (150-400); Red Blood Cell Count 4.33 X10^6/uL (4.0-5.2); Red Cell Distribution Width 13.9 % (11.6-14.8); White Blood Cell Count 4.7 X10^3/uL (4.5-11.0)
[2019-10-22 07:36] VITALS: O2SAT 97
[2019-10-22 08:00] VITALS: BP 125/60; PULSE 71; RESP 17; TEMP 36.7; O2SAT 98
[2019-10-22 08:21] LABS: Procalcitonin < 0.05 ng/mL (<0.5)
--- NOTE | 2019-10-22 09:16 | P.DS_ITS ---
History of Present Illness History of Present Illness Date Patient Seen: 10/22/19 Chief complaint: dizzy Narrative: Joleen Crowe is a pleasant 64 y.o. female with prior history of a CVA 10 years ago, a recent history of lithotrypsy and urethral stent placement on October 03 for kidney stones, presented to the ED with confusion, short-term memory loss, word-finding problems and went through a complete workup in the emergency department and was ruled out for a CVA. Her urine studies indicated a high presence of bacteria and she was determined to have have a complicated UTI. They initiated her on Ceftriaxone and she has shown per her significant improvement with hydration and antibiotic treatment since arrival in the ED. He stated she was confused, was not tracking their conversation, and was trembling. She has had continued pain after the placement of the stent and states she feels like it is moving around inside of her. The patient also has complex migraines associated with a vestibular disorder and now complains of a severe headache. She prefers not to take narcotics as she states she is sensitive to them and is concerned about getting addicted to them. 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 She has an appointment w/Dr. Bardales to remove the urethral stent on Monday of this week. CT of the brain and CTA of the head and neck did not identify any acute intercranial process or blockage. CT of the abdomen and pelvis indicated a Right double-J ureteral stent. Mild dilatation of the right renal collecting system and right renal pelvis with adjacent fat stranding extending along the proximal 3rd of the right ureter. Findings may represent upper urinary tract infection. UA indicated many bacteria appropriate for culture. Temperature 98.0?, blood pressure 159/70, heart rate 76, respiratory rate 18, oxygen saturation 97% on room air, she weighs 87.5 kg with a BMI of 32.1. WBC was normal at 8.1, RBC 4.83, hemoglobin 14.2, hematocrit 42.6, platelet count 226, sodium 136, potassium 3.8, chloride 103, CO2 25, creatinine 0.73, BUN 14, GFR greater than 60, glucose 137, lactate was initially elevated at 2.2 and the 2nd reading was 1.3, calcium 9.5, magnesium 1.8, liver enzymes within normal limits, cardiac markers were also within normal limits, procalcitonin was normal at 0.05 . Discharge Providers Provider Date of admission: 10/20/19 23:54 Discharge Date: 10/22/19 Primary care physician: Sylvain Espinoza DO Consults: 10/21/19 08:31 Consult to Physician Routine Comment: Consulting Provider: Ludwin Bardales Reason for consultation: Pain w/urethral stent scheduled for removal X 2 days Has provider been notified: No 10/21/19 10:54 Consult to Physical Therapy Evaluate & Treat Comment: Physician Instructions: Evaluate and Treat Discharge provider: Mellisa Meredith MD Summary Hospital Course Discharge Diagnosis: 1. Acute metabolic encephalopathy, present on admission, now resolved 2. Status post lithotripsy and ureteral stent exchange October 03 3. Removal of ureteral stent October 21, 2019 4. Probable complicated urinary tract infection, urinalysis positive on admission, however final culture negative for bacteria 5. complex migraine headache 6. History of CVA Hospital Course: Patient was admitted to the hospital with confusion. She underwent ureteral lithotripsy and ureteral stent exchange on October 03. Her initial urinalysis was positive for bacteria. The patient was empirically stay started on IV ceftriaxone with improvement of mentation. The patient's urine culture was negative at the time of this dictation. She was seen in consultation by Dr. Bardales who removed her ureteral stent 1 day prior to disch arge. Overall the patient felt significantly improved. She had no further confusion. She was afebrile. She had no hypotension. There was no sign or symptoms to suggest sepsis. Patient continued to improve accordingly. She was deemed appropriate for discharge. The patient will be discharged home on 7 days of antibiotic. She will follow-up with Dr. Bardales next week. Status at Discharge Cognitive/behavioral status at discharge: oriented Functional status at discharge: independent ambulation Overall status at discharge: patient is back to baseline Time Spent with Patient Time spent: Less than 30 minutes Exam Vital Signs (past 8 hours): - 10/22/19 07:36 10/22/19 08:00 Temperature 98.0 F Pulse Rate 71 Respiratory Rate 17 Blood Pressure 125/60 Pulse Oximetry 97 98 Oxygen Delivery Method Room Air Oxygen Flow Rate 0 Narrative Exam Narrative: Pleasant elderly female in no obvious distress Lungs: Clear to auscultation Cardiac exam: Regular rate and rhythm normal S1-S2 Abdomen: Soft nontender nondistended, no CVA tenderness bilaterally Extremities: No edema Objective Labs Result Diagrams: 10/22/19 06:10 10/21/19 06:48 Labs: Laboratory Results - last 24 hr 10/22/19 10/22/19 06:10 06:10 WBC 4.7 RBC 4.33 Hgb 12.8 Hct 38.6 MCV 89.2 MCH 29.5 MCHC 33.1 RDW 13.9 Plt Count 179 Neut % (Auto) 33.1 L D Lymph % (Auto) 53.5 H [place] % (Auto) 8.0 Eos % (Auto) 4.2 H Baso % (Auto) 1.2 Neut # (Auto) 1600 Lymph # (Auto) 2500 [place] # (Auto) 400 Eos # (Auto) 200 Baso # (Auto) 100 Procalcitonin < 0.05 Discharge Assessment & Plan Assessment and Plan Assessment: 1. Acute metabolic encephalopathy, present on admission, now resolved 2. Probable urinary tract infection, urinalysis positive, final culture result negative 3. Status post lithotripsy with ureteral stent exchange on 10/03 4. Removal of ureteral stent Plan of Treatment: Patient will be discharged home on levofloxacin 250 mg per day for 7 days She will follow-up with Dr. Bardales next week Discharge Plan Discharge Plan Patient Disposition: Home Discharge orders & Medications Prescriptions: New levofloxacin 250 mg tablet 250 mg PO DAILY Qty: 7 RF: 0 Continued meclizine 25 mg tablet 25 mg PO BID PRN (Reason: dizziness) Qty: 100 RF: 0 lorazepam 1 mg tablet 1 mg PO QD-BID PRN (Reason: anxiety) Qty: 60 RF: 0 omeprazole 20 mg capsule,delayed release(DR/EC) 20 mg PO DAILY Qty: 90 RF: 3 cyclobenzaprine 10 mg tablet 10 mg PO BEDTIME PRN (Reason: muscle spasm) Qty: 5 RF: 0 tramadol 50 mg tablet 50 mg PO Q6H PRN (Reason: pain) Qty: 20 RF: 0 tramadol 50 mg tablet 50 mg PO Q6H PRN (Reason: pain) Qty: 30 RF: 0 tamsulosin 0.4 mg capsule 0.4 mg PO BEDTIME Qty: 30 RF: 0 Follow up/Referrals: Sylvain Espinoza DO [Primary Care Provider] - Discharge Health Status Multidrug resistant organism: No MDRO Diet/Activity/Treatments Diet: Diet as Tolerated Activity: as tolerated Discharge Data Primary Care Provider: Sylvain Espinoza Quality VTE Deep Vein Thrombosis/Pulmonary Embolism Present on Admission: No
--- NOTE | 2019-10-22 11:00 | PC.NURSE ---
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 Taken to her who will drive her home. Paperwork signed and all questions answered. Pt has all personal belongings. script sent electronic to her pharmacy. Pt happy to be going home and happy to be feeling better she stated.
--- NOTE | 2019-10-22 11:22 | PT-IP ANOTE ---
checked on pt's room and pt has d/c'd already. nurse confirmed and stated that pt is doing well.
== END 2019-10-22 11:01 | disposition home or self-care (01) | DRG 689 ==
LOC: ED 23:31 → AC 23:56
PROVIDERS: Internal Medicine; Admitting Provider Nurse Practitioner Family; Emergency Provider Emergency Medicine; PCP Family Medicine; Referring Provider Emergency Medicine; Visit Provider Nurse Practitioner Family
DX: N10 Acute pyelonephritis (principal); G93.41 Metabolic encephalopathy; N39.0 Urinary tract infection, site not specified; K21.9 Gastro-esophageal reflux disease without esophagitis; G43.109 Migraine with aura, not intractable, without status migrainosus; H81.8X9 Other disorders of vestibular function, unspecified ear; Z86.73 Personal history of transient ischemic attack (TIA), and cerebral infarction without residual deficits
CPT/HCPCS: 36415; 70450; 70496; 70498; 74176; 80048; 80053; 81001; 81003; 82550; 83605; 83735; 83880; 84145; 84484; 85025; 86140; 87040; 87086; 87635; 93005; 96361; 96365; 96375; 97162; 99285; 99291; J2405; Q9967

== ENCOUNTER 2019-11-03 09:04 | Emergency (ER) | payer MEDICARE, OTHER, SELFPAY ==
[2019-10-21 00:37] VITALS: BMI 32.1
[2019-11-03 09:24] VITALS: BP 133/71; PULSE 87; RESP 20; TEMP 36.4; O2SAT 91; BMI 29.1
--- NOTE | 2019-11-03 09:24 | ED_ITS ---
HPI - Chest Pain General Chief Complaint: Chest Pain Stated Complaint: Chest pain Time Seen by Provider: 11/03/19 09:20 Source: patient Mode of arrival: Ambulatory Limitations: no limitations History of Present Illness HPI narrative: The patient is a 64-year-old female who presents with chest pain which started around midnight last evening. She has no known coronary artery disease. She describes her chest pain is sharp shooting pains that last briefly for seconds and come every few minutes but the frequency varies. She has no radiation of pain she feels a little nauseous no vomiting. She thinks she may have gas in her chest. She is quite anxious. She recently admitted to the hospital October 19 through the for UTI after a recent lithotripsy and ureteral stent placement on October 03. She says she has not felt right since. MD complaint: chest pain Onset (ago): hour(s) Duration: intermittent Onset: during rest Pain location: left chest Severity: moderate Quality: sharp Relieving factors: nothing Exacerbating factors: nothing Related Data Allergies Allergy/AdvReac Type Severity Reaction Status Date / Time hydromorphone [From Dilaudid] Allergy Intermediate Unsure Verified 11/03/19 09:34 clindamycin Allergy Verified 11/03/19 09:34 verapamil Allergy Verified 11/03/19 09:34 meperidine [From Demerol] AdvReac Intermediate vomiting Verified 11/03/19 09:34 Review of Systems Review of Systems Narrative: GENERAL: Denies chills, fatigue, malaise, fever, sweats, travel HEENT: Denies sinus pain, ear pain, sore throat, difficulty swallowing, neck pain RESPIRATORY: Denies dyspnea, cough, wheezing, hemoptysis, sputum. CARDIOVASCULAR: See HPI GASTROINTESTINAL: Denies nausea, vomiting, abdominal pain, diarrhea, c onstipation, melena. : Denies dysuria, frequency, incontinence, hematuria, urinary retention, flank pain. MUSCULOSKELETAL: Denies weakness, joint pain, or bony pain SKIN: No rash, no erythema, no pruritus NEUROLOGIC: Denies weakness, dizziness, headache, numbness, change in speech, confusion PSYCHIATRIC: No concerning psychosocial issues. 12 point review of systems is negative except for those stated above and HPI Patient History Medical History Chicken pox (Resolved) GERD (gastroesophageal reflux disease) (Acute) Hydronephrosis of right kidney (Acute) Hyperglycemia (Acute) Irritable bowel syndrome (Chronic ~2016) LVH (left ventricular hypertrophy) (Acute) Migraines (Chronic) Moderate anxiety (Acute) Recurrent sinusitis (Chronic ~1999) Right ureteral calculus (Acute) Right ureteral stone (Acute) Seasonal allergies (Chronic ~2010) Stroke (Inactive ~2009) Tinnitus (Chronic ~1994) Tonsillectomy planned (Acute) Urolithiasis (Acute) Vertigo (Chronic ~1994) Surgical History Anesthesia (Resolved) History of throat surgery (Resolved ~2011) Hx of cystoscopy (Acute 08/25/19) Family History Father Cancer Diabetes mellitus Mother Dementia Grandmother History of blood clots Grandmother Cancer Social History household members: spouse Smoking Status: Never smoker alcohol intake: current Smoking Status: Never smoker alcohol intake frequency: holidays/special occasions only Substance Use Type: does not use Exam Initial Vital Signs Initial Vital Signs: Vital Signs Temperature 97.6 F 11/03/19 09:24 Pulse Rate 87 11/03/19 09:24 Respiratory Rate 20 11/03/19 09:24 Blood Pressure 133/71 11/03/19 09:24 Pulse Oximetry 91 11/03/19 09:24 GENERAL: Very anxious middle-aged female and in no acute distress. HEENT: Head atraumatic,EOMI, pupils reactive, face symmetric, moist mucous membranes CARDIOVASCULAR: Regular rate and rhythm without murmurs, rubs or gallops. RESPIRATORY: Breath sounds equal bilaterally, no wheezes rales or rhonchi. ABDOMEN: Soft, nontender. Normoactive bowel sounds all 4 quadrants. No guarding or rebound. EXTREMITIES: Normal range of motion, no clubbing or edema. Neurovascularly intact NEUROLOGICAL: Alert and oriented x4.Normal gait and speech. Cranial nerves II through XII grossly intact. SKIN: Warm, dry, no laceration, no petechiae, no rashes or lesions. Scores HEART Score Heart Score history: Slightly Suspicious Heart Score EKG: Normal Heart Score Age: > or = 65 years old Heart Score risk factors: No known risk factors Heart Score troponin: < or = to normal limit Heart Score Total: 2 Course Orders Ordered: ED Orders 11/03/19 09:12 EKG-12 Lead Routine 11/03/19 09:20 Complete Blood Count AUTO DIFF Stat Comprehensive Metabolic Panel Stat Lipase Stat Partial Thromboplastin Time Stat Prothrombin Time INR Stat Troponin & CK Cardiac Panel Stat 11/03/19 09:31 XR chest 1V Stat 11/03/19 09:43 D Dimer Stat 11/03/19 09:57 EKG-12 Lead Stat Discontinued Medications Sodium Chloride (Normal Saline 0.9%) 1,000 mls @ 1,000 mls/hr IV BOLUS ONE Stop: 11/03/19 11:06 Last Infusion: 11/03/19 11:21 Dose: 0 mls/hr Documented by: Admin: 11/03/19 10:00 Dose: 1,000 mls/hr Documented by: TRACY Lorazepam (Ativan) 0.5 mg PO NOW ONE Stop: 11/03/19 10:28 Last Admin: 11/03/19 10:34 Dose: 0.5 mg Documented by: TRACY Reevaluation(s) Reevaluation #1: Patient feeling lightheaded like she might pass out. She does suffer from ongoing vertigo it has been there for 20 years she says this feels a little bit different. I aM at bedside she is in sinus rhythm on the monitor she feels like her chest sharpness is getting worse. She is placed in Trendelenburg which seems to help her. Time: 09:52 Vital Signs Vital signs: Vital Signs - 8 hr 11/03/19 09:24 11/03/19 10:00 11/03/19 10:30 Temperature 97.6 F Pulse Rate 87 66 62 Respiratory Rate 20 26 H 22 Blood Pressure 133/71 150/66 H Pulse Oximetry 91 99 99 11/03/19 11:20 11/03/19 11:22 Temperature Pulse Rate 80 Respiratory Rate 16 Blood Pressure 132/45 L Pulse Oximetry 95 95 MDM - Chest Pain Lab Data Attestation: I reviewed the patient's lab results. Result diagrams: 11/03/19 09:20 11/03/19 09:20 Labs: Lab Results 08/23/20 08/23/20 08/23/20 Range/Units 09:20 09:20 09:20 WBC 6.1 (4.5-11.0) X10^3/uL RBC 4.83 (4.0-5.2) X10^6/uL Hgb 13.9 (12.0-16.0) g/dL Hct 42.8 (36-46) % MCV 88.6 (80-100) fL MCH 28.9 (26-34) PG MCHC 32.6 (30-36) % RDW 14.2 (11.6-14.8) % Plt Count 223 (150-400) X10^3/uL Neut % (Auto) 48.3 L (50-75) % Lymph % (Auto) 41.2 H (25-40) % [place] % (Auto) 7.2 (3-14) % Eos % (Auto) 2.3 (2-4) % Baso % (Auto) 1.0 (0-2) % Neut # (Auto) 3000 (6942-6083) /uL Lymph # (Auto) 2500 (3439-0362) /uL [place] # (Auto) 400 (0-900) /uL Eos # (Auto) 100 (0-450) /uL Baso # (Auto) 100 (0-100) /uL PT 11.0 (10.1-12.7) SECONDS INR 1.0 (0.9-1.3) APTT 31 (26.4-36.2) SECONDS D-Dimer (<230) ng/mL Sodium 140 (137-145) mmol/L Potassium 3.8 (3.4-5.1) mmol/L Chloride 108 H (98-107) mmol/L Carbon Dioxide 25 (22-32) mmol/L BUN 11 (7-17) mg/dL Creatinine 0.67 (0.52-1.04) mg/dL Estimated GFR > 60.0 (>60) mL/min BUN/Creatinine Ratio 16.4 (6-22) Glucose 115 H (80-110) mg/dL Calcium 9.9 (8.4-10.2) mg/dL Total Bilirubin 0.6 (0.2-1.3) mg/dL AST 25 (14-36) IU/L ALT 17 (<35) IU/L Alkaline Phosphatase 57 (38-126) U/L Total Creatine Kinase 30 (30-135) U/L CK-MB (CK-2) TNP CK-MB (CK-2) Rel Index TNP Troponin I < 0.012 (0.01-0.034) ng/mL Total Protein 7.2 (6.3-8.2) g/dL Albumin 4.1 (3.5-5.0) g/dL Globulin 3.1 (1.7-4.1) g/dL Albumin/Globulin Ratio 1.3 (1.0-2.8) Lipase 283 (23-300) U/L 11/03/19 Range/Units 09:43 WBC (4.5-11.0) X10^3/uL RBC (4.0-5.2) X10^6/uL Hgb (12.0-16.0) g/dL Hct (36-46) % MCV (80-100) fL MCH (26-34) PG MCHC (30-36) % RDW (11.6-14.8) % Plt Count (150-400) X10^3/uL Neut % (Auto) (50-75) % Lymph % (Auto) (25-40) % [place] % (Auto) (3-14) % Eos % (Auto) (2-4) % Baso % (Auto) (0-2) % Neut # (Auto) (8124-8996) /uL Lymph # (Auto) (9449-6765) /uL [place] # (Auto) (0-900) /uL Eos # (Auto) (0-450) /uL Baso # (Auto) (0-100) /uL PT (10.1-12.7) SECONDS INR (0.9-1.3) APTT (26.4-36.2) SECONDS D-Dimer < 200 (<230) ng/mL Sodium (137-145) mmol/L Potassium (3.4-5.1) mmol/L Chloride (98-107) mmol/L Carbon Dioxide (22-32) mmol/L BUN (7-17) mg/dL Creatinine (0.52-1.04) mg/dL Estimated GFR (>60) mL/min BUN/Creatinine Ratio (6-22) Glucose (80-110) mg/dL Calcium (8.4-10.2) mg/dL Total Bilirubin (0.2-1.3) mg/dL AST (14-36) IU/L ALT (<35) IU/L Alkaline Phosphatase (38-126) U/L Total Creatine Kinase (30-135) U/L CK-MB (CK-2) CK-MB (CK-2) Rel Index Troponin I (0.01-0.034) ng/mL Total Protein (6.3-8.2) g/dL Albumin (3.5-5.0) g/dL Globulin (1.7-4.1) g/dL Albumin/Globulin Ratio (1.0-2.8) Lipase (23-300) U/L Point of Care Testing Glucose POC 108 ECG Data Attestation: I personally reviewed and interpreted this ECG as follows: Prior ECG tracings: available for review Interpretation: Normal sinus rhythm rate 81 p.r. interval 171 QRS [address] changes similar to previous EKG EKG 2. Normal sinus rhythm rate 67 p.r. interval [address] changes similar to previous EKG MDM Narrative Medical decision making narrative: Patient receiving 1 L IV bolus still feeling a little lightheaded. Troponin is negative after 10 hours symptoms not concerning for cardiac 2 EKGs that are negative. Requesting Ativan she received it during her previous admission. Patient ambulatory to the restroom still having chest discomfort but is overall feeling much better. Low risk heart score at this time recommend outpatient follow-up. Discharge Plan Departure Patient Disposition: Home Clinical Impression: Atypical chest pain Discharge Date/Time: 11/03/19 11:25 Instructions: DI for Atypical Chest Pain Activity Restrictions/Additional Instructions: *You have been diagnosed with atypical chest pain *What to do: It is unclear what is causing her chest pain today however the testing done in the emergency department is overall reassuring. He may still require cardiac testing but please discuss this with her primary care provider *Continue to take medications as directed *Follow up with your primary care provider in 2-3 days *Return to ER if you should have worsening chest pain shortness of breath pas sing out or any new, worsening or concerning symptoms Referrals: Sylvain Espinoza, DO [Primary Care Provider] -
--- NOTE | 2019-11-03 09:31 | DI.RAD.S_ITS ---
PROCEDURE: XR CHEST 1V INDICATIONS: chest pain TECHNIQUE: One view of the chest was acquired. COMPARISON: None. FINDINGS: Surgical changes and devices: None. Lungs and pleura: Lungs are clear. No pleural effusions or pneumothorax. Mediastinum: Mediastinal contours appear normal. Heart size is normal. Bones and chest wall: No suspicious bony lesions. Overlying soft tissues appear unremarkable. IMPRESSION: No acute cardiopulmonary findings. Dictated by: Odette Mar M.D. on 11/03/2019 at 9:08 Approved by: Odette Mar M.D. on 11/03/2019 at 9:08
[2019-11-03 09:36] LABS: Add Manual Diff / Slide Review NO; Basophils Absolute Auto 100 /uL (0-100); Eosinophils Absolute Auto 100 /uL (0-450); Eosinophils Percent Auto 2.3 % (2-4); Hematocrit 42.8 % (36-46); Hemoglobin 13.9 g/dL (12.0-16.0); Lymphocytes Absolute Auto 2500 /uL (1100-4500); Lymphocytes Percent Auto 41.2 % (25-40); Mean Corpuscular HGB Conc 32.6 % (30-36); Mean Corpuscular Hemoglobin 28.9 PG (26-34); Mean Corpuscular Volume 88.6 fL (80-100); Monocytes Absolute Auto 400 /uL (0-900); Monocytes Percent Auto 7.2 % (3-14); Neutrophils Absolute Auto 3000 /uL (1500-7000); Neutrophils Percent Auto 48.3 % (50-75); Platelet Count 223 X10^3/uL (150-400); Red Blood Cell Count 4.83 X10^6/uL (4.0-5.2); Red Cell Distribution Width 14.2 % (11.6-14.8); White Blood Cell Count 6.1 X10^3/uL (4.5-11.0)
[2019-11-03 09:40] LABS: PTT Partial Thromboplastin Tim 31 SECONDS (26.4-36.2)
[2019-11-03 09:41] LABS: Alanine Aminotransferase 17 IU/L (<35); Albumin 4.1 g/dL (3.5-5.0); Albumin Globulin Ratio 1.3 (1.0-2.8); Alkaline Phosphatase 57 U/L (38-126); Aspartate Aminotransferase 25 IU/L (14-36); BUN Creatinine Ratio 16.4 (6-22); Bilirubin Total 0.6 mg/dL (0.2-1.3); Blood Urea Nitrogen 11 mg/dL (7-17); Calcium 9.9 mg/dL (8.4-10.2); Carbon Dioxide 25 mmol/L (22-32); Chloride 108 mmol/L (98-107); Creatine Kinase 30 U/L (30-135); Estimated Glomerular Filt Rate > 60.0 mL/min (>60); Globulin 3.1 g/dL (1.7-4.1); Glucose 115 mg/dL (80-110); HEMOLYSIS < 15 (0-50); Lipase 283 U/L (23-300); Potassium 3.8 mmol/L (3.4-5.1); Sodium 140 mmol/L (137-145); Total Protein 7.2 g/dL (6.3-8.2)
[2019-11-03 09:51] LABS: D Dimer < 200 ng/mL (<230)
[2019-11-03 09:53] LABS: Troponin I < 0.012 ng/mL (0.01-0.034)
[2019-11-03 10:00] VITALS: PULSE 66; RESP 26; O2SAT 99
[2019-11-03] MEDS: SODIUM CHLORIDE 0.9% 1,000 ML 1000 ML IV (10:00)
--- NOTE | 2019-11-03 10:01 | PC.NURSE ---
Patients came out to let me know that patient is feeling lightheaded. I entered room and patient is sitting upright on the bed. Dr. Martinez at bedside. Patient asked to lay down and rest. verbal order obtained for glucose, IV fluids, and repeat EKG. Patient reports feeling better and asked to sit upright again. Patient repositioned and notified that sitting up may make her feel light headed again. Patient begins shaking and reports feeling not well and does not like shaking. Warm blankets provided. Informed that blood glucose looks good and so far lab work looks okay. Patient still tearful. Reminded to use call light for any needs.
[2019-11-03 10:30] VITALS: BP 150/66; PULSE 62; RESP 22; O2SAT 99
[2019-11-03] MEDS: LORazepam 0.5 MG TABLET PO (10:34)
[2019-11-03 11:20] VITALS: O2SAT 95
[2019-11-03 11:22] VITALS: BP 132/45; PULSE 80; RESP 16; O2SAT 95
== END 2019-11-03 11:25 | disposition home or self-care (01) ==
PROVIDERS: Emergency Provider Emergency Medicine; PCP Family Medicine
DX: R07.89 Other chest pain (principal); R42 Dizziness and giddiness
CPT/HCPCS: 36415; 71045; 80053; 82550; 82962; 83690; 84484; 85025; 85379; 85610; 85730; 93005; 93010; 96360; 99284

== ENCOUNTER 2019-12-12 14:39 | Emergency (ER) | payer MEDICARE, OTHER, SELFPAY ==
[2019-10-21 00:37] VITALS: BMI 32.1
[2019-12-12] VITALS (7 sets, daily range): BP systolic 122–160; BP diastolic 60–101; PULSE 68–107; RESP 16–30; TEMP 36.6; O2SAT 97–99; BMI 29.1
--- NOTE | 2019-12-12 14:44 | ED.GENADULT ---
HPI - General Adult General Chief complaint: Urogenital-Female Stated complaint: thinks she has UTI Time Seen by Provider: 12/12/19 14:43 History of Present Illness HPI narrative: 64-year-old woman with a history of a stroke 10 years ago, this tubular difficulties complicated by complex migraine, hospital discharge on October 21 with hospitalization for pyelonephritis and acute delirium after right ureteroscopic laser lithotripsy and stent exchange on 10/04/2019. In the emergency room she was started on ceftriaxone eventually discharged home with Levaquin which caused significant adverse effects and was stopped after 3 days. Urinalysis collected on October 21 did not actually show a UTI and cultures are not available to guide treatment today. She notes that she began feeling unwell last night and this morning noticed increasing frequency and dysuria. She is has had no hematuria, she is developing some right-sided flank discomfort but no overt flank pain. No abdominal pain. She denies vomiting but is somewhat nauseated. No diarrhea no constipation no other abdominal pain. No chest pain, fever, cough. She does complain of chronic headaches that are currently unchanged she and her both note that she seems cognitively blurred, able to express full thoughts in speak fluidly yet off in a way that made them come in sooner than they had with previous hospital admission for similar symptoms. Related Data Allergies Allergy/AdvReac Type Severity Reaction Status Date / Time hydromorphone [From Dilaudid] Allergy Intermediate Unsure Verified 12/12/19 14:51 clindamycin Allergy Verified 12/12/19 14:51 verapamil Allergy Verified 12/12/19 14:51 meperidine [From Demerol] AdvReac Intermediate vomiting Verified 12/12/19 14:51 Review of Systems Review of Systems Narrative: Chronic sinusitis issues for which she uses Flonase Chronic stomach complaints for which she is on a PPI Remainder of review of systems including constitutional, ENT, cardiovascular, respiratory, GI, , musculoskeletal, skin, neurologic and psychiatric systems reviewed and are unremarkable except as noted in HPI. Patient History Medical History Acute pyelonephritis (Inactive) Chicken pox (Resolved) GERD (gastroesophageal reflux disease) (Acute) Hyperglycemia (Acute) Irritable bowel syndrome (Chronic ~2017) LVH (left ventricular hypertrophy) (Acute) Migraines (Chronic) Moderate anxiety (Acute) Recurrent sinusitis (Chronic ~1999) Right ureteral calculus (Acute) Seasonal allergies (Chronic ~2010) Stroke (Inactive ~2009) Tinnitus (Chronic ~1994) Tonsillectomy planned (Acute) Vertigo (Chronic ~1994) Surgical History Anesthesia (Resolved) History of throat surgery (Resolved ~2011) Hx of cystoscopy (Acute 08/25/19) Family History Father Cancer Diabetes mellitus Mother Dementia Grandmother History of blood clots Grandmother Cancer Social History household members: spouse Smoking Status: Never smoker alcohol intake: current (Rarely) Smoking Status: Never smoker alcohol intake frequency: holidays/special occasions only Substance Use Type: does not use Exam Narrative Exam Narrative: General: no acute distress but appears to feel unwell as well as fatigued. Able to give a complete history. Well-nourished well-developed HEENT: Moist mucous membranes, normal sclera with reactive pupils, Neck: No JVD, supple Respiratory: Lungs are clear to auscultation, no wheezing no rales no rhonchi. Full and symmetrical air movement Cardiac: Regular rate and rhythm no murmurs no bruits Abdomen: Soft nontender good bowel tones, mild right flank pain Skin: Warm and dry, no rashes Neurologic: Grossly neurologically intact with no obvious asymmetries or abnormalities Extremities: No trauma, well perfused Psych: Cooperative, appropriate insight and affect Initial Vital Signs Initial Vital Signs: Vital Signs Temperature 98 F 12/12/19 14:48 Pulse Rate 107 H 12/12/19 14:48 Respiratory Rate 18 12/12/19 14:48 Blood Pressure 142/101 H 12/12/19 14:48 Pulse Oximetry 98 12/12/19 14:48 Course Orders Ordered: Discontinued Medications Ceftriaxone Sodium/Dextrose (Rocephin) 2 gm in 50 mls @ 100 mls/hr IV NOW ONE Stop: 12/12/19 15:42 Last Infusion: 12/12/19 16:30 Dose: 0 mls/hr Documented by: Admin: 12/12/19 16:00 Dose: 100 mls/hr Documented by: VINCE Sodium Chloride (Normal Saline 0.9%) 1,000 mls @ 1,000 mls/hr IV BOLUS ONE Stop: 12/12/19 16:12 Last Infusion: 12/12/19 16:54 Dose: 0 mls/hr Documented by: Infusion: 12/12/19 16:30 Dose: 1,000 mls/hr Documented by: Infusion: 12/12/19 16:00 Dose: 400 mls/hr Documented by: Admin: 12/12/19 15:38 Dose: 1,000 mls/hr Documented by: VINCE Ketorolac Tromethamine (Toradol) 15 mg IV NOW ONE Stop: 12/12/19 15:14 Last Admin: 12/12/19 15:37 Dose: 15 mg Documented by: VINCE Ondansetron HCl (Zofran) 4 mg IV NOW ONE Stop: 12/12/19 15:14 Last Admin: 12/12/19 15:38 Dose: 4 mg Documented by: VINCE Vital Signs Vital signs: Vital Signs - 8 hr 12/12/19 14:48 12/12/19 15:05 12/12/19 15:30 Temperature 98 F Pulse Rate 107 H 95 H 96 H Respiratory Rate 18 Blood Pressure 142/101 H 157/62 H Pulse Oximetry 98 98 98 12/12/19 16:01 Temperature Pulse Rate 76 Respiratory Rate 19 Blood Pressure 130/78 Pulse Oximetry 99 Medical Decision Making Lab Data Result diagrams: 12/12/19 14:50 12/12/19 14:50 Labs: Lab Results 12/12/19 12/12/19 12/12/19 Range/Units 14:43 14:50 14:50 WBC 8.2 (4.5-11.0) X10^3/uL RBC 5.03 (4.0-5.2) X10^6/uL Hgb 14.9 (12.0-16.0) g/dL Hct 44.3 (36-46) % MCV 88.0 (80-100) fL MCH 29.6 (26-34) PG MCHC 33.6 (30-36) % RDW 14.3 (11.6-14.8) % Plt Count 261 (150-400) X10^3/uL Neut % (Auto) 51.9 (50-75) % Lymph % (Auto) 38.9 (25-40) % Castro % (Auto) 7.3 (3-14) % Eos % (Auto) 1.1 L (2-4) % Baso % (Auto) 0.8 (0-2) % Neut # (Auto) 4300 (6915-4719) /uL Lymph # (Auto) 3200 (0077-4061) /uL Castro # (Auto) 600 (0-900) /uL Eos # (Auto) 100 (0-450) /uL Baso # (Auto) 100 (0-100) /uL Sodium (137-145) mmol/L Potassium (3.4-5.1) mmol/L Chloride (98-107) mmol/L Carbon Dioxide (22-32) mmol/L BUN (7-17) mg/dL Creatinine (0.52-1.04) mg/dL Estimated GFR (>60) mL/min BUN/Creatinine Ratio (6-22) Glucose (80-110) mg/dL Lactate (0.7-2.1) mmol/L Calcium (8.4-10.2) mg/dL Total Bilirubin (0.2-1.3) mg/dL AST (14-36) IU/L ALT (<35) IU/L Alkaline Phosphatase (38-126) U/L Total Protein (6.3-8.2) g/dL Albumin (3.5-5.0) g/dL Globulin (1.7-4.1) g/dL Albumin/Globulin Ratio (1.0-2.8) Lipase (23-300) U/L Procalcitonin < 0.05 (<0.5) ng/mL Urine Color Yellow Urine Appearance Sl cloudy Urine pH 8.5 H (4.5-8.0) Ur Specific [place] 1.015 (1.000-1.035) Urine Protein Negative (Negative) Urine Glucose (UA) Negative (Negative) g/dL Urine Ketones Negative (NEGATIVE) Urine Occult Blood Negative (Negative) Urine Nitrate Negative (Negative) Urine Bilirubin Negative (NEGATIVE) Urine Urobilinogen 0.2 (0.2) E.U./dL Ur Leukocyte Esterase Negative (NEGATIVE) Urine RBC 0-1/hpf (0-5/HPF) Urine WBC 1-5/hpf (0-5/HPF) Ur Squamous Epith Cells >30 /hpf H D (0-5/HPF) Urine Bacteria Many (>30) H (None) Ur Culture Indicated? Cult not indicated COVID-19 PCR (Negative) 12/12/19 12/12/19 12/12/19 Range/Units 14:50 14:50 17:20 WBC (4.5-11.0) X10^3/uL RBC (4.0-5.2) X10^6/uL Hgb (12.0-16.0) g/dL Hct (36-46) % MCV (80-100) fL MCH (26-34) PG MCHC (30-36) % RDW (11.6-14.8) % Plt Count (150-400) X10^3/uL Neut % (Auto) (50-75) % Lymph % (Auto) (25-40) % [place] % (Auto) (3-14) % Eos % (Auto) (2-4) % Baso % (Auto) (0-2) % Neut # (Auto) (1668-0147) /uL Lymph # (Auto) (4327-0492) /uL Castro # (Auto) (0-900) /uL Eos # (Auto) (0-450) /uL Baso # (Auto) (0-100) /uL Sodium 139 (137-145) mmol/L Potassium 3.9 (3.4-5.1) mmol/L Chloride 105 (98-107) mmol/L Carbon Dioxide 26 (22-32) mmol/L BUN 13 (7-17) mg/dL Creatinine 0.76 (0.52-1.04) mg/dL Estimated GFR > 60.0 (>60) mL/min BUN/Creatinine Ratio 17.1 (6-22) Glucose 122 H (80-110) mg/dL Lactate 1.6 (0.7-2.1) mmol/L Calcium 10.2 (8.4-10.2) mg/dL Total Bilirubin 0.6 (0.2-1.3) mg/dL AST 33 (14-36) IU/L ALT 18 (<35) IU/L Alkaline Phosphatase 83 (38-126) U/L Total Protein 7.9 (6.3-8.2) g/dL Albumin 4.5 (3.5-5.0) g/dL Globulin 3.4 (1.7-4.1) g/dL Albumin/Globulin Ratio 1.3 (1.0-2.8) Lipase 201 (23-300) U/L Procalcitonin (<0.5) ng/mL Urine Color Urine Appearance Urine pH (4.5-8.0) Ur Specific [place] (1.000-1.035) Urine Protein (Negative) Urine Glucose (UA) (Negative) g/dL Urine Ketones (NEGATIVE) Urine Occult Blood (Negative) Urine Nitrate (Negative) Urine Bilirubin (NEGATIVE) Urine Urobilinogen (0.2) E.U./dL Ur Leukocyte Esterase (NEGATIVE) Urine RBC (0-5/HPF) Urine WBC (0-5/HPF) Ur Squamous Epith Cells (0-5/HPF) Urine Bacteria (None) Ur Culture Indicated? COVID-19 PCR Negative (Negative) MDM Narrative Medical decision making narrative: 64-year-old woman presents with low-grade fever complaints of dysuria and mild confusion. Through her emergency room stay she is becoming more confused and more unsteady. Having difficulty walking to the bathroom due to her chronic vestibular complaints but cognitively seems much more alert. White count is unremarkable as is remainder of her CBC. Chemistries are equally unremarkable with normal renal function. Normal procalcitonin and normal lactic acid. Urinalysis shows a dirty sample with squamous cells and bacteria. Will wait for culture does not look like it is infected. She is feeling better after a L of fluid. At this time, I am finding no obvious reason for her to be admitted. Will go ahead and do a Covid swab an anticipate discharge home with low threshold for return if she has worsening. If for some reason she is developing a UTI the 2 g of ceftriaxone that she has had today will be adequate coverage for simple cystitis. At this time there is no evidence for stroke, sepsis, intra-abdominal infection, pulmonary infection. This may simply be worsening of her baseline this tubular dysfunction. She also notes after the encephalopathy episode in October that she does have days that are worse than others. On re-evaluation after fluids she is significantly more cognitively aware and appropriately focused. She is safe for home discharge at this time Discharge Plan Departure Patient Disposition: Home Clinical Impression: Altered mental status Qualifiers: Altered mental status type: unspecified Qualified Code(s): R41.82 - Altered mental status, unspecified Discharge Date/Time: 12/12/19 17:29 Instructions: DI for Encephalopathy Activity Restrictions/Additional Instructions: Thank you for coming in today Your workup was entirely reassuring with normal white blood count, red blood cell count and chemistries including kidney function and liver function. Your urine does not suggest an acute bladder infection. In the emergency room you did receive a L of fluid as well as antibiotics with the anticipation that you were developing a bladder infection. This single dose of IV antibiotics will be adequate if a simple outpatient bladder infection does show up on the urine culture. We did do a Covid swab today just to be safe. Result should be available by tomorrow. There are no signs of overwhelming infection, kidney infection, stroke or other reasons for hospital admission. We did briefly discuss your bad days in your good days after your recent encephalopathy with hospital admission. Brains do take quite a bit of time to heal, however yours is still young and healthy enough that I would expect you to get back to your completely normal baseline. If you have any concerns that you are getting worse or things are changing please return to the emergency department and I am happy to re-evaluate. Referrals: Sylvain Espinoza, DO [Primary Care Provider] -
[2019-12-12 15:17] LABS: Appearance Urine UA SL CLOUDY; Bilirubin Urine UA NEGATIVE (NEGATIVE); Color Urine UA YELLOW; Glucose Urine UA NEGATIVE (Negative); Ketones Urine UA NEGATIVE (NEGATIVE); Leukocyte Esterase Urine UA NEGATIVE (NEGATIVE); Nitrite Urine UA NEGATIVE (Negative); Occult Blood Urine UA NEGATIVE (Negative); Protein Urine UA NEGATIVE (Negative); Specific Gravity Urine UA 1.015 (1.000-1.035); Urobilinogen Urine UA 0.2 E.U./dL (0.2); pH Urine UA 8.5 (4.5-8.0)
[2019-12-12 15:27] LABS: Add Manual Diff / Slide Review NO; Basophils Absolute Auto 100 /uL (0-100); Basophils Percent Auto 0.8 % (0-2); Eosinophils Absolute Auto 100 /uL (0-450); Eosinophils Percent Auto 1.1 % (2-4); Hematocrit 44.3 % (36-46); Hemoglobin 14.9 g/dL (12.0-16.0); Lymphocytes Absolute Auto 3200 /uL (1100-4500); Lymphocytes Percent Auto 38.9 % (25-40); Mean Corpuscular HGB Conc 33.6 % (30-36); Mean Corpuscular Hemoglobin 29.6 PG (26-34); Monocytes Absolute Auto 600 /uL (0-900); Monocytes Percent Auto 7.3 % (3-14); Neutrophils Absolute Auto 4300 /uL (1500-7000); Neutrophils Percent Auto 51.9 % (50-75); Platelet Count 261 X10^3/uL (150-400); Red Blood Cell Count 5.03 X10^6/uL (4.0-5.2); Red Cell Distribution Width 14.3 % (11.6-14.8); White Blood Cell Count 8.2 X10^3/uL (4.5-11.0)
[2019-12-12 15:31] LABS: Bacteria Urine Many (>30); Culture Indicated Urine Cult Not Indicated; RBC Urine 0-1/HPF (0-5/HPF); Squamous Epithelial Cell Urine >30 /HPF (0-5/HPF); WBC Urine 1-5/HPF (0-5/HPF)
[2019-12-12 15:34] LABS: Alanine Aminotransferase 18 IU/L (<35); Albumin 4.5 g/dL (3.5-5.0); Albumin Globulin Ratio 1.3 (1.0-2.8); Alkaline Phosphatase 83 U/L (38-126); Aspartate Aminotransferase 33 IU/L (14-36); BUN Creatinine Ratio 17.1 (6-22); Bilirubin Total 0.6 mg/dL (0.2-1.3); Blood Urea Nitrogen 13 mg/dL (7-17); Calcium 10.2 mg/dL (8.4-10.2); Carbon Dioxide 26 mmol/L (22-32); Chloride 105 mmol/L (98-107); Estimated Glomerular Filt Rate > 60.0 mL/min (>60); Globulin 3.4 g/dL (1.7-4.1); Glucose 122 mg/dL (80-110); HEMOLYSIS 19 (0-50); Lactate (Lactic Acid) 1.6 mmol/L (0.7-2.1); Lipase 201 U/L (23-300); Potassium 3.9 mmol/L (3.4-5.1); Sodium 139 mmol/L (137-145); Total Protein 7.9 g/dL (6.3-8.2)
[2019-12-12] MEDS: KETOROLAC 60 MG/2 ML VIAL 15 MG IV (15:37)
[2019-12-12] MEDS: ONDANSETRON 4 MG/2 ML INJ IV (15:38)
[2019-12-12] MEDS: SODIUM CHLORIDE 0.9% 1,000 ML 1000 ML IV (15:38)
[2019-12-12 15:55] LABS: Procalcitonin < 0.05 ng/mL (<0.5)
[2019-12-12] MEDS: CEFTRIAXONE 2 GM/50 ML FROZ.PIGGY IV (16:00)
[2019-12-12 17:55] LABS: COVID19 -Nasal RAPID Negative (Negative)
== END 2019-12-12 17:29 | disposition home or self-care (01) ==
PROVIDERS: Emergency Provider Emergency Medicine; PCP Family Medicine
DX: R41.82 Altered mental status, unspecified (principal); R30.0 Dysuria
CPT/HCPCS: 36415; 80053; 81001; 83605; 83690; 84145; 85025; 87040; 87635; 96365; 96375; 99284; J0696; J1885; J2405

== ENCOUNTER 2020-09-28 11:07 | Emergency (ER) | payer MEDICARE, OTHER, SELFPAY ==
[2019-10-21 00:37] VITALS: BMI 32.1
[2020-09-28 11:11] VITALS: BP 168/75; PULSE 92; RESP 14; TEMP 36.6; O2SAT 98
[2020-09-28 11:46] LABS: COVID19 -Nasal RAPID Negative (Negative)
== END 2020-09-28 12:32 | disposition left against medical advice (07) ==
PROVIDERS: Emergency Provider Emergency Medicine; PCP Family Medicine
DX: Z20.822 Contact with and (suspected) exposure to COVID-19 (principal)
CPT/HCPCS: 87635; 99281; C9803

== ENCOUNTER → 2022-11-12 09:09 | Outpatient (CLI) | payer MEDICARE, OTHER, SELFPAY ==
[2019-10-21 00:37] VITALS: BMI 32.1
[2022-11-12 10:48] LABS: Add Manual Diff / Slide Review NO; Basophils Absolute Auto 100 /uL (0-100); Basophils Percent Auto 0.8 % (0-2); Eosinophils Absolute Auto 100 /uL (0-450); Eosinophils Percent Auto 1.2 % (2-4); Hemoglobin 14.8 g/dL (12.0-16.0); Lymphocytes Absolute Auto 3100 /uL (1100-4500); Lymphocytes Percent Auto 33.6 % (25-40); Mean Corpuscular HGB Conc 33.6 % (30-36); Mean Corpuscular Hemoglobin 29.6 PG (26-34); Mean Corpuscular Volume 88.1 fL (80-100); Monocytes Absolute Auto 600 /uL (0-900); Monocytes Percent Auto 6.8 % (3-14); Neutrophils Absolute Auto 5400 /uL (1500-7000); Neutrophils Percent Auto 57.6 % (50-75); Platelet Count 267 X10^3/uL (150-400); Red Blood Cell Count 4.99 X10^6/uL (4.0-5.2); Red Cell Distribution Width 13.8 % (11.6-14.8); White Blood Cell Count 9.3 X10^3/uL (4.5-11.0)
[2022-11-12 11:00] LABS: Hemoglobin A1C% w Est Avg Glu 5.5 % (4.0-6.0)
[2022-11-12 11:26] LABS: Alanine Aminotransferase 23 IU/L (<35); Albumin 4.2 g/dL (3.5-5.0); Albumin Globulin Ratio 1.5 (1.0-2.8); Alkaline Phosphatase 80 U/L (38-126); Aspartate Aminotransferase 24 IU/L (14-36); BUN Creatinine Ratio 26.2 (6-22); Bilirubin Total 0.6 mg/dL (0.2-1.3); Blood Urea Nitrogen 22 mg/dL (7-17); Calcium 9.9 mg/dL (8.4-10.2); Carbon Dioxide 21 mmol/L (22-32); Chloride 105 mmol/L (98-107); Cholesterol 256 mg/dL (140-199); Estimated Glomerular Filt Rate > 60 mL/min (>60); Globulin 2.8 g/dL (1.7-4.1); Glucose 117 mg/dL (80-110); HDL Cholesterol 47 mg/dL (40-60); HEMOLYSIS < 15 (0-50); LDL Cholesterol Calculated 179 mg/dL (<100); Potassium 3.9 mmol/L (3.4-5.1); Sodium 138 mmol/L (137-145); Triglycerides 152 mg/dL (35-150)
[2022-11-12 11:36] LABS: Vitamin D 25 Hydroxy (D3) < 12.8 ng/mL (30.0-100.0)
[2022-11-12 12:11] LABS: Vitamin B12 242 pg/mL (239-931)
== END ==
PROVIDERS: PCP Family Medicine; Referring Provider Family Medicine; Visit Provider Family Medicine
DX: H83.2X9 Labyrinthine dysfunction, unspecified ear (principal); R73.9 Hyperglycemia, unspecified; F41.9 Anxiety disorder, unspecified; Z13.220 Encounter for screening for lipoid disorders
CPT/HCPCS: 36415; 80053; 80061; 82306; 82607; 83036; 84443; 85025

== ENCOUNTER → 2023-05-20 09:55 | Outpatient (CLI) | payer MEDICARE, OTHER, SELFPAY ==
[2019-10-21 00:37] VITALS: BMI 32.1
[2023-05-20 11:50] LABS: Cholesterol 214 mg/dL (140-199); HDL Cholesterol 49 mg/dL (40-60); LDL Cholesterol Calculated 136 mg/dL (<100); Triglycerides 143 mg/dL (35-150)
[2023-05-20 12:08] LABS: Vitamin D 25 Hydroxy (D3) 17.3 ng/mL (30.0-100.0)
[2023-05-20 12:41] LABS: Vitamin B12 238 pg/mL (239-931)
== END ==
PROVIDERS: PCP Family Medicine; Referring Provider Family Medicine; Visit Provider Family Medicine
DX: E78.2 Mixed hyperlipidemia (principal); E55.9 Vitamin D deficiency, unspecified; E53.8 Deficiency of other specified B group vitamins
CPT/HCPCS: 36415; 80061; 82306; 82607

== ENCOUNTER → 2023-12-02 09:39 | Outpatient (CLI) | payer MEDICARE, OTHER, SELFPAY ==
[2019-10-21 00:37] VITALS: BMI 32.1
--- NOTE | 2023-12-02 09:40 | DI.RAD.S_ITS ---
PROCEDURE: XR HAND RT MIN 3V INDICATIONS: hand pain TECHNIQUE: 3 views of the hand(s) acquired. COMPARISON: None. FINDINGS: Bones: No fractures or dislocations. Osteoarthritic changes are noted throughout right hand and wrist joints. No gross bony erosive changes. Carpal bones are normally aligned. No suspicious bony lesions. Soft tissues: No suspicious soft tissue calcifications. 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 No fracture or dislocation. No bony erosive changes. Dictated by: Conor Forbes M.D. on 12/02/2023 at 10:00 Approved by: Conor Forbes M.D. on 12/02/2023 at 10:04
== END ==
PROVIDERS: PCP Family Medicine; Referring Provider Family Medicine; Visit Provider Family Medicine
DX: M19.041 Primary osteoarthritis, right hand (principal); M19.031 Primary osteoarthritis, right wrist; M79.641 Pain in right hand; G89.29 Other chronic pain
CPT/HCPCS: 73130

== ENCOUNTER → 2023-12-09 10:02 | Outpatient (CLI) | payer MEDICARE, OTHER, SELFPAY ==
[2019-10-21 00:37] VITALS: BMI 32.1
[2023-12-09 10:41] LABS: Add Manual Diff / Slide Review NO; Basophils Absolute Auto 100 /uL (0-100); Basophils Percent Auto 0.9 % (0-2); Eosinophils Absolute Auto 200 /uL (0-450); Eosinophils Percent Auto 3.2 % (2-4); Hematocrit 44.5 % (36-46); Hemoglobin 15.1 g/dL (12.0-16.0); Lymphocytes Absolute Auto 3200 /uL (1100-4500); Lymphocytes Percent Auto 43.5 % (25-40); Mean Corpuscular HGB Conc 33.9 % (30-36); Mean Corpuscular Hemoglobin 30.4 PG (26-34); Mean Corpuscular Volume 89.7 fL (80-100); Monocytes Absolute Auto 600 /uL (0-900); Monocytes Percent Auto 7.9 % (3-14); Neutrophils Absolute Auto 3300 /uL (1500-7000); Neutrophils Percent Auto 44.5 % (50-75); Platelet Count 220 X10^3/uL (150-400); Red Blood Cell Count 4.96 X10^6/uL (4.0-5.2); Red Cell Distribution Width 13.7 % (11.6-14.8); White Blood Cell Count 7.3 X10^3/uL (4.5-11.0)
[2023-12-09 10:51] LABS: Alanine Aminotransferase 20 IU/L (<35); Albumin 4.3 g/dL (3.5-5.0); Albumin Globulin Ratio 1.4 (1.0-2.8); Alkaline Phosphatase 69 U/L (38-126); Aspartate Aminotransferase 24 IU/L (14-36); BUN Creatinine Ratio 20.6 (6-22); Bilirubin Total 0.6 mg/dL (0.2-1.3); Blood Urea Nitrogen 20 mg/dL (7-17); Calcium 10.1 mg/dL (8.4-10.2); Carbon Dioxide 25 mmol/L (22-32); Chloride 104 mmol/L (98-107); Cholesterol 238 mg/dL (140-199); Estimated Glomerular Filt Rate > 60 mL/min (>60); Globulin 3.1 g/dL (1.7-4.1); Glucose 110 mg/dL (80-110); HDL Cholesterol 46 mg/dL (40-60); HEMOLYSIS < 15 (0-50); LDL Cholesterol Calculated 161 mg/dL (<100); Potassium 4.4 mmol/L (3.4-5.1); Sodium 138 mmol/L (137-145); Total Protein 7.4 g/dL (6.3-8.2); Triglycerides 157 mg/dL (35-150)
[2023-12-09 11:08] LABS: Vitamin D 25 Hydroxy (D3) 20.7 ng/mL (30.0-100.0)
[2023-12-09 11:40] LABS: Vitamin B12 250 pg/mL (239-931)
== END ==
PROVIDERS: PCP Family Medicine; Referring Provider Family Medicine; Visit Provider Family Medicine
DX: E53.8 Deficiency of other specified B group vitamins (principal); E78.2 Mixed hyperlipidemia; E55.9 Vitamin D deficiency, unspecified; N20.0 Calculus of kidney
CPT/HCPCS: 36415; 80053; 80061; 82306; 82607; 85025

== ENCOUNTER → 2024-04-13 08:49 | Outpatient (CLI) | payer MEDICARE, OTHER, SELFPAY ==
[2019-10-21 00:37] VITALS: BMI 32.1
[2024-04-13 09:55] LABS: Cholesterol 261 mg/dL (140-199); HDL Cholesterol 49 mg/dL (40-60); LDL Cholesterol Calculated 178 mg/dL (<100); Triglycerides 171 mg/dL (35-150)
[2024-04-13 10:13] LABS: Vitamin D 25 Hydroxy (D3) < 12.8 ng/mL (30.0-100.0)
== END ==
PROVIDERS: PCP Family Medicine; Referring Provider Family Medicine; Visit Provider Family Medicine
DX: E78.2 Mixed hyperlipidemia (principal); E55.9 Vitamin D deficiency, unspecified
CPT/HCPCS: 36415; 80061; 82306

== ENCOUNTER → 2024-07-20 10:41 | Outpatient (CLI) | payer MEDICARE, OTHER, SELFPAY ==
[2019-10-21 00:37] VITALS: BMI 32.1
[2024-07-20 11:34] LABS: Cholesterol 179 mg/dL (140-199); HDL Cholesterol 54 mg/dL (40-60); LDL Cholesterol Calculated 108 mg/dL (<100); Triglycerides 83 mg/dL (35-150)
[2024-07-20 11:52] LABS: Vitamin D 25 Hydroxy (D3) 52.1 ng/mL (30.0-100.0)
== END ==
PROVIDERS: PCP Family Medicine; Referring Provider Family Medicine; Visit Provider Family Medicine
DX: E78.2 Mixed hyperlipidemia (principal); E55.9 Vitamin D deficiency, unspecified; Z91.89 Other specified personal risk factors, not elsewhere classified
CPT/HCPCS: 36415; 80061; 82306

== ENCOUNTER → 2025-03-01 10:07 | Outpatient (CLI) | payer MEDICARE, OTHER, SELFPAY ==
[2019-10-21 00:37] VITALS: BMI 32.1
[2025-03-01 10:27] LABS: Add Manual Diff / Slide Review NO; Hematocrit 43.2 % (36-46); Hemoglobin 14.6 g/dL (12.0-16.0); Lymphocytes Absolute Auto 2200 /uL (1100-4500); Mean Corpuscular HGB Conc 33.9 % (30-36); Mean Corpuscular Hemoglobin 30.2 PG (26-34); Mean Corpuscular Volume 89.2 fL (80-100); Platelet Count 220 X10^3/uL (150-400)
[2025-03-01 10:54] LABS: Alanine Aminotransferase 18 IU/L (<35); Albumin 4.0 g/dL (3.5-5.0); Albumin Globulin Ratio 1.5 (1.0-2.8); Alkaline Phosphatase 69 U/L (38-126); Blood Urea Nitrogen 14 mg/dL (7-17); Calcium 9.5 mg/dL (8.4-10.2); Carbon Dioxide 23 mmol/L (22-32); Chloride 107 mmol/L (98-107); Cholesterol 182 mg/dL (140-199); Estimated Glomerular Filt Rate > 60 mL/min (>60); Globulin 2.7 g/dL (1.7-4.1); Glucose 117 mg/dL (70-99); HDL Cholesterol 53 mg/dL (40-60); HEMOLYSIS < 15 (0-50); Potassium 4.3 mmol/L (3.4-5.1); Sodium 139 mmol/L (137-145); Total Protein 6.7 g/dL (6.3-8.2); Triglycerides 137 mg/dL (35-150)
== END ==
PROVIDERS: PCP Family Medicine; Referring Provider Family Medicine; Visit Provider Family Medicine
DX: E78.2 Mixed hyperlipidemia (principal)
CPT/HCPCS: 36415; 80053; 80061; 85025

== ENCOUNTER → 2025-03-07 10:59 | Outpatient (CLI) | payer MEDICARE, OTHER, SELFPAY ==
[2019-10-21 00:37] VITALS: BMI 32.1
[2025-03-07 12:19] LABS: Appearance Urine UA CLEAR; Bilirubin Urine UA NEGATIVE (NEGATIVE); Color Urine UA YELLOW; Glucose Urine UA NEGATIVE (Negative); Ketones Urine UA NEGATIVE (NEGATIVE); Leukocyte Esterase Urine UA 1+ (NEGATIVE); Nitrite Urine UA NEGATIVE (Negative); Occult Blood Urine UA TRACE-INTACT (Negative); Protein Urine UA NEGATIVE (Negative); Specific Gravity Urine UA <=1.005 (1.000-1.035); Urobilinogen Urine UA 0.2 E.U./dL (0.2); pH Urine UA 6.0 (4.5-8.0)
[2025-03-07 12:34] LABS: Culture Indicated Urine Specimen Cultured
== END ==
PROVIDERS: PCP Family Medicine; Referring Provider Family Medicine; Visit Provider Family Medicine
DX: R30.0 Dysuria (principal)
CPT/HCPCS: 81001; 87077; 87086; 87186